=== PATIENT | female | born 1960 | race Caucasian/White ===

== ENCOUNTER 2018-08-24 03:13 | Emergency (ER) | payer BC ==
[~2018-08-24] VITALS: Ht 160 cm; Wt 75.0 kg
[~2018-08-24 03:13] MED LIST: ATI0.5T PO
[2018-08-24 03:15] VITALS: BP 188/83
== END 2018-08-24 04:40 | disposition home or self-care (01) ==
LOC: ER 03:13
DX: S00.412A Abrasion of left ear, initial encounter (principal); D68.32 Hemorrhagic disorder due to extrinsic circulating anticoagulants; T45.525A Adverse effect of antithrombotic drugs, initial encounter; H92.22 Otorrhagia, left ear; I10 Essential (primary) hypertension; Z90.49 Acquired absence of other specified parts of digestive tract; Z79.899 Other long term (current) drug therapy; X58.XXXA Exposure to other specified factors, initial encounter; Y93.89 Activity, other specified; Y92.89 Other specified places as the place of occurrence of the external cause; Y99.8 Other external cause status; Y92.9 Unspecified place or not applicable
CPT/HCPCS: 99281

== ENCOUNTER 2018-11-14 23:18 | Emergency (ER) | payer BC ==
[~2018-11-14] VITALS: Ht 160 cm; Wt 72.7 kg
[2018-11-14 23:30] VITALS: BP 121/72
[2018-11-14] MEDS ORDERED: ERYT1OIN6 RIGHTEYE (23:43)
== END 2018-11-14 23:57 | disposition home or self-care (01) ==
LOC: ER 23:19
DX: H00.022 Hordeolum internum right lower eyelid (principal); I10 Essential (primary) hypertension; Z79.899 Other long term (current) drug therapy
CPT/HCPCS: 99283

== ENCOUNTER 2020-05-27 09:10 | Day surgery (SDC) | payer BC ==
[2020-05-27] VITALS (9 sets, daily range): BP systolic 92–147; BP diastolic 47–83
[~2020-05-27] VITALS: Ht 160 cm; Wt 85.6 kg
[~2020-05-27 09:10] MED LIST changes: +LIDOcaine 1% (10mg/ml)w/preservative injection 20ml MDV ONE; +heparin 1,000unit/ml 10ml vial 10 ML ONE; +iohexol 350MG/ML 100ml bottle IV ONE
[2020-05-27] MEDS ORDERED: normal saline 1,000 ML IV SCH (09:45)
[2020-05-27] MEDS ORDERED: diphenhydrAMINE 25mg capsule PO PRN (09:45)
[2020-05-27 10:14] LABS: BASOPHILS # (AUTO) 0.1 X10'3 (0-0.2); BASOPHILS % (AUTO) 0.9 % (0-1); EOSINOPHILS # (AUTO) 0.3 X10'3 (0-0.9); EOSINOPHILS % (AUTO) 4.3 % (0-6); HEMATOCRIT 42.3 % (35.0-45.0); HEMOGLOBIN 13.6 g/dl (12.0-16.0); LYMPHOCYTES # (AUTO) 1.5 X10'3 (1.1-4.8); LYMPHOCYTES % (AUTO) 19.3 % (21-51); MEAN CORPUSCULAR HEMOGLOBIN 28.5 PG (27.0-31.0); MEAN CORPUSCULAR HGB CONC 32.1 g/dL (33.0-36.5); MEAN CORPUSCULAR VOLUME 88.8 FL (78-98); MEAN PLATELET VOLUME 7.7 FL (7.4-10.4); MONOCYTES # (AUTO) 0.7 X10'3 (0-0.9); MONOCYTES % (AUTO) 8.6 % (2-12); NEUTROPHILS # (AUTO) 5.1 X10'3 (1.8-7.7); NEUTROPHILS % (AUTO) 66.9 % (42-75); PLATELET COUNT 207 X10'3 (140-440); RED BLOOD COUNT 4.77 X10'6 (4.20-5.60); RED CELL DISTRIBUTION WIDTH 20.8 % (11.5-14.5); WHITE BLOOD COUNT 7.6 X10'3 (4.5-11.0)
[2020-05-27 10:28] LABS: ALBUMIN 3.2 G/DL (3.4-5.0); ANION GAP 7 (8-16); BLOOD UREA NITROGEN 10 MG/DL (7-18); BUN/CREATININE RATIO 8.9 (6.6-38.0); CALCIUM 9.1 MG/DL (8.5-10.1); CHLORIDE 102 MMOL/L (99-107); CREATININE 1.12 MG/DL (0.40-0.90); GLUCOSE 115 MG/DL (70-104); MAGNESIUM 1.8 MG/DL (1.5-2.4); POTASSIUM 4.3 MMOL/L (3.5-5.1); SODIUM 138 MMOL/L (135-145); TOTAL CARBON DIOXIDE 28.6 MMOL/L (24-32); eGFR 50 ML/MIN
[2020-05-27] MEDS ORDERED: PANT40TA54 PO (10:39)
[2020-05-27] MEDS ORDERED: CLOP75TA33 PO (10:39)
[2020-05-27] MEDS ORDERED: ATOR80TA PO (10:40)
[2020-05-27] MEDS ORDERED: FURO80TA87 PO (10:43)
[2020-05-27] MEDS ORDERED: CARV-50 PO (10:47)
[2020-05-27] MEDS ORDERED: ALBU18HF2 INH (10:48)
[2020-05-27] MEDS ORDERED: LISI10TA4 PO (10:48)
[2020-05-27] MEDS ORDERED: RIVA2.5T PO (10:50)
[2020-05-27 10:51] LABS: ANISOCYTOSIS 3+; HYPOCHROMASIA 1+; PLATELET ESTIMATE NORMAL; POLYCHROMASIA FEW; TARGET CELLS FEW
[2020-05-27] MEDS ORDERED: IPRA3AMP31 IH (10:51)
[2020-05-27 10:52] LABS: ELLIPTOCYTES FEW
[2020-05-27] MEDS ORDERED: iohexol 350MG/ML 100ml bottle IV ONE (10:53)
[2020-05-27] MEDS ORDERED: fentaNYL/PF 50MCG/1 ML 2ML syringe ONE ×3 (10:53→12:00)
[2020-05-27] MEDS ORDERED: LIDOcaine 1% (10mg/ml)w/preservative injection 20ml MDV ONE (10:53)
[2020-05-27] MEDS ORDERED: midazolam 2 mg/2 ml injection ONE ×4 (10:53→12:00)
[2020-05-27] MEDS ORDERED: heparin 1,000unit/ml 10ml vial 10 ML ONE (10:53)
[2020-05-27] MEDS ORDERED: POTA20TA19 PO (11:00)
[2020-05-27] MEDS ORDERED: LORA-268 PO (11:02)
[2020-05-27] MEDS ORDERED: protamine sulfate 10mg/ml inj. ONE (13:06)
[2020-05-27] MEDS ORDERED: acetaminophen 325mg tablet PO PRN (14:00)
[2020-05-27] MEDS ORDERED: HYDROcodone/acetaminophen 10/325mg tab PO PRN (14:00)
[2020-05-27] MEDS ORDERED: HYDROcodone/acetaminophen 5mg/325mg tablet PO PRN (14:00)
[2020-05-27] MEDS ORDERED: ondansetron/PF 4mg/2ml inj IV PRN (14:00)
[2020-05-27] MEDS ORDERED: proCHLORperazine 10 MG/2 ml inj IV PRN (14:00)
== END 2020-05-27 17:15 | disposition home or self-care (01) ==
LOC: SSTAY O 09:10
PROVIDERS: ATTEND Internal Medicine Cardiovascular Disease
DX: I70.213 Atherosclerosis of native arteries of extremities with intermittent claudication, bilateral legs (principal); I25.10 Atherosclerotic heart disease of native coronary artery without angina pectoris; M79.605 Pain in left leg; M79.604 Pain in right leg; I73.9 Peripheral vascular disease, unspecified; I65.22 Occlusion and stenosis of left carotid artery; I70.0 Atherosclerosis of aorta; I42.9 Cardiomyopathy, unspecified; I10 Essential (primary) hypertension; E78.5 Hyperlipidemia, unspecified; E11.9 Type 2 diabetes mellitus without complications
CPT/HCPCS: 36415; 37224; 75716; 80048; 83735; 85008; 85025; 85610; 93005; C1725; C1760; C1769; C1887; C1894; J1644; J2001; J2250; J2720; J3010; Q9967; 36140; 36245; 99152; 99153; A4620

== ENCOUNTER 2020-06-28 12:52 | Inpatient (IN) | payer BC ==
[~2020-06-28] VITALS: Ht 160 cm; Wt 85.0 kg
[2020-06-28] VITALS (11 sets, daily range): BP systolic 104–135; BP diastolic 43–75
[~2020-06-28 12:52] MED LIST changes: +ALBU18HF2 INH; +ATOR80TA PO; +CARV-50 PO; +CLOP75TA33 PO; +FURO80TA87 PO; +IPRA3AMP31 IH; -LIDOcaine 1% (10mg/ml)w/preservative injection 20ml MDV ONE; +LISI10TA4 PO; +LORA-268 PO; +PANT40TA54 PO; +POTA20TA19 PO; +RIVA2.5T PO; -heparin 1,000unit/ml 10ml vial 10 ML ONE; -iohexol 350MG/ML 100ml bottle IV ONE
[2020-06-28] MEDS ORDERED: CETI-90 PO (13:08)
[2020-06-28] MEDS ORDERED: MONT10TA21 PO (13:08)
[2020-06-28] MEDS ORDERED: IBUP-1985 PO (13:08)
[2020-06-28] MEDS ORDERED: diphenhydrAMINE 25mg capsule PO PRN (13:15)
[2020-06-28] MEDS ORDERED: normal saline 1,000 ML IV SCH (13:15)
[2020-06-28] MEDS ORDERED: fentaNYL/PF 50MCG/1 ML 2ML syringe ONE ×4 (13:26→17:45)
[2020-06-28] MEDS ORDERED: midazolam 2 mg/2 ml injection ONE ×6 (13:26→17:45)
[2020-06-28] MEDS ORDERED: LIDOcaine 1% (10mg/ml)w/preservative injection 20ml MDV ONE (13:26)
[2020-06-28] MEDS ORDERED: heparin 1,000unit/ml 10ml vial 10 ML ONE ×2 (13:27→17:54)
[2020-06-28] MEDS ORDERED: iohexol 350MG/ML 100ml bottle IV ONE ×4 (13:27→17:51)
[2020-06-28 13:35] LABS: ANION GAP 7 (8-16); BLOOD UREA NITROGEN 13 MG/DL (7-18); BUN/CREATININE RATIO 11.5 (6.6-38.0); CALCIUM 9.2 MG/DL (8.5-10.1); CHLORIDE 101 MMOL/L (99-107); CREATININE 1.13 MG/DL (0.40-0.90); GLUCOSE 116 MG/DL (70-104); MAGNESIUM 1.9 MG/DL (1.5-2.4); POTASSIUM 4.5 MMOL/L (3.5-5.1); SODIUM 137 MMOL/L (135-145); TOTAL CARBON DIOXIDE 29.2 MMOL/L (24-32); eGFR 49 ML/MIN
[2020-06-28 13:53] LABS: BASOPHILS # (AUTO) 0.1 X10'3 (0-0.2); BASOPHILS % (AUTO) 1.8 % (0-1); EOSINOPHILS # (AUTO) 0.3 X10'3 (0-0.9); EOSINOPHILS % (AUTO) 5.1 % (0-6); HEMATOCRIT 36.6 % (35.0-45.0); HEMOGLOBIN 11.7 g/dl (12.0-16.0); LYMPHOCYTES # (AUTO) 1.5 X10'3 (1.1-4.8); LYMPHOCYTES % (AUTO) 21.4 % (21-51); MEAN CORPUSCULAR HEMOGLOBIN 27.4 PG (27.0-31.0); MEAN CORPUSCULAR HGB CONC 31.9 g/dL (33.0-36.5); MEAN CORPUSCULAR VOLUME 85.9 FL (78-98); MONOCYTES # (AUTO) 0.6 X10'3 (0-0.9); MONOCYTES % (AUTO) 8.8 % (2-12); NEUTROPHILS # (AUTO) 4.3 X10'3 (1.8-7.7); NEUTROPHILS % (AUTO) 62.9 % (42-75); PLATELET COUNT 285 X10'3 (140-440); RED BLOOD COUNT 4.26 X10'6 (4.20-5.60); RED CELL DISTRIBUTION WIDTH 22.4 % (11.5-14.5); WHITE BLOOD COUNT 6.8 X10'3 (4.5-11.0)
[2020-06-28 13:59] LABS: ANISOCYTOSIS 3+; PLATELET ESTIMATE NORMAL; POLYCHROMASIA 1+
[2020-06-28] MEDS ORDERED: proCHLORperazine 10 MG/2 ml inj ONE (15:15)
[2020-06-28] MEDS ORDERED: HYDROmorphone 1 mg/ml syringe ONE (16:47)
[2020-06-28] MEDS ORDERED: clopidogrel 300mg tablet ONE (18:14)
[2020-06-28] MEDS ORDERED: HYDROcodone/acetaminophen 10/325mg tab PO PRN (19:00)
[2020-06-28] MEDS ORDERED: magnesium hydroxide 30ml (MOM) UD suspension PO PRN (19:00)
[2020-06-28] MEDS ORDERED: nitroGLYCERIN 0.4mg SUBLingual tab SL PRN (19:00)
--- NOTE | 2020-06-28 19:30 | NUR ---
Patient in room . I have received report from Carisa LAGOS from short stay and had the opportunity to ask questions and assume patient care.
--- NOTE | 2020-06-28 19:45 | NUR ---
Patient was transported by gurney to the PCU floor. Patient's belongings were placed in cabinet. Vitals were stable and patient was in very little pain. Left popliteal and right groin were assessed by myself and Carisa LAGOS. Patient was stable at time of transfer.
[2020-06-28] MEDS: docusate sod 100mg capsule PO SCH (20:00)
[2020-06-28] MEDS ORDERED: normal saline 1000ml 1,000 ML IV ONE (20:00)
[2020-06-29] VITALS (7 sets, daily range): BP systolic 107–131; BP diastolic 60–74
--- NOTE | 2020-06-29 01:30 | NUR ---
Unable to palpate patient's left pedal pulse. Unable to find doppler pulse. Temperature of right and left feet equal. Spoke with charge and she suggested to carefully ambulate patient now that 6 hours had passed. Patient ambulated with 2 person assistance to bathroom and back. Was able to find weak doppler pulse on left foot after ambulation. Will continue to monitor closely. Patient stated that her left foot has been discolored for a while and didn't look or feel different than it has felt.
[2020-06-29] MEDS ORDERED: normal saline 1,000 ML IV SCH (02:00)
[2020-06-29] MEDS: HYDROcodone/acetaminophen 10/325mg tab PO PRN ×2 (03:28→08:51)
[2020-06-29 05:34] LABS: CHOL/HDL RATIO 4.5 (0.00-4.99); CHOLESTEROL 117 MG/DL (0-200); HDL CHOLESTEROL 26 MG/DL (35-60); LDL CHOLESTEROL 53 MG/DL (50-100); TRIGLYCERIDES 303 MG/DL (20-135)
--- NOTE | 2020-06-29 06:30 | NUR ---
Patient in room PCU 3027. I have received report from Jessica LAGOS and had the opportunity to ask questions and assume patient care.
--- NOTE | 2020-06-29 06:49 | NUR ---
Problems reprioritized. Patient report given, questions answered & plan of care reviewed with Kathya LAGOS. Patient was resting comfortably during report. No acute distress was noted.
[2020-06-29] MEDS ORDERED: clopidogrel 75mg tablet PO SCH (08:00)
[2020-06-29] MEDS: docusate sod 100mg capsule PO SCH (08:00)
[2020-06-29] MEDS ORDERED: RIVA2.5T PO (09:18)
[2020-06-29] MEDS ORDERED: CLOP75TA15 PO (09:21)
--- NOTE | 2020-06-29 11:48 | NUR ---
Called in prescriptions to pharmacy of preference with Ashley pharmacist
--- NOTE | 2020-06-29 12:50 | NUR ---
Per MD orders, patient stable for discharge home. New prescriptions called in to pharmacy of preference. Discharge packet and post-op care instructions reviewed with patient at bedside and all questions answered to patient satisfaction. Tele monitoring discontinued, VSS. PIV discontinued; cannula intact. All belongings sent with patient. Transferred to private vehicle via wheelchair accompanied by family member.
[2020-06-30] MEDS ORDERED: HYDR-4383 PO (02:15)
[2020-06-30] MEDS ORDERED: iohexol 350MG/ML 100ml bottle IV ONE (04:17)
[2020-06-30] MEDS ORDERED: FURO-150 PO (12:13)
[2020-06-30] MEDS ORDERED: CLOP75TA15 PO (12:15)
[2020-06-30] MEDS ORDERED: RIVA2.5T PO (12:32)
== END 2020-06-29 12:45 | disposition home or self-care (01) | DRG 254 ==
LOC: SSTAY O 12:52 → PCU 3S 18:10
PROVIDERS: ADMIT Internal Medicine Cardiovascular Disease; ATTEND Internal Medicine Cardiovascular Disease
PROC: X27J395 Dilation of Left Femoral Artery with Two Sustained Release Drug-eluting Intraluminal Devices, Percutaneous Approach, New Technology Group 5 (ICD-10-PCS; principal; 2020-06-28)
PROC: 047N3ZZ Dilation of Left Popliteal Artery, Percutaneous Approach (ICD-10-PCS; 2020-06-28)
DX: I73.89 Other specified peripheral vascular diseases (principal)
CPT/HCPCS: 36415; 37226; 75710; 80048; 80061; 83735; 85008; 85025; 85610; 93005; 99152; 99153; A4620; A5120; A6258; C1725; C1760; C1769; C1876; C1887; C1894; C2623; G0378; J0780; J1170; J1644; J2001; J2250; J3010; J7030; Q0163; Q9967

== ENCOUNTER 2020-06-30 01:07 | Emergency (ER) | payer BC ==
[~2020-06-30] VITALS: Ht 160 cm; Wt 83.6 kg
[~2020-06-30 01:07] MED LIST changes: -ATI0.5T PO; +CETI-90 PO; +CLOP75TA15 PO; -CLOP75TA33 PO; +IBUP-1985 PO; +MONT10TA21 PO
[2020-06-30 01:25] VITALS: BP 124/66
[2020-06-30] MEDS ORDERED: HYDR-4383 PO (02:15)
[2020-06-30] MEDS ORDERED: FURO-150 PO (12:13)
[2020-06-30] MEDS ORDERED: CLOP75TA15 PO (12:15)
[2020-06-30] MEDS ORDERED: RIVA2.5T PO (12:32)
== END 2020-06-30 05:15 | disposition left against medical advice (07) ==
LOC: ER 01:08
DX: M79.652 Pain in left thigh (principal); G89.18 Other acute postprocedural pain
CPT/HCPCS: 93926; 93971; 99285

== ENCOUNTER 2020-06-30 10:06 | Inpatient (IN) | payer BC ==
[~2020-06-30] VITALS: Ht 162.6 cm; Wt 79.6 kg
[~2020-06-30 10:06] MED LIST changes: +HYDR-4383 PO; +calcium chloride 100 MG/1 ML inj IV ONE; +epiNEPHrine 0.1mg/ml 10ml syringe ONE; +etomidate 2mg/ml inj. ONE; +rocuronium 10mg/ml inj IV ONE; +sodium bicarbonate (8.4%) 1 mEq/ml syringe ONE
[2020-06-30] MEDS ORDERED: heparin 10,000 units/1 ML INJ IV ONE (10:25)
[2020-06-30] MEDS ORDERED: morphine 4 MG/ML inj SYRINge IV ONE (10:30)
[2020-06-30] MEDS ORDERED: ondansetron/PF 4mg/2ml inj IV ONE (10:30)
[2020-06-30] MEDS: heparin 25,000 UNIT/250ml bag 250 ML IV SCH (10:53)
[2020-06-30] MEDS ORDERED: acetaminophen 325mg tablet PO PRN (10:55)
[2020-06-30] MEDS ORDERED: magnesium 4gm in 100ml NS 100 ML IV PRN (10:55)
[2020-06-30] MEDS ORDERED: potassium Cl 20 mEq SR tablet PO PRN ×2 (10:55)
[2020-06-30] MEDS ORDERED: ondansetron/PF 4mg/2ml inj IV PRN (10:55)
[2020-06-30] MEDS ORDERED: magnesium 2GM in 50ml NS 50 ML IV PRN (10:55)
[2020-06-30] MEDS ORDERED: magnesium Cl slow-release 64mg tablet PO PRN (10:55)
[2020-06-30] MEDS ORDERED: potassium CL 10mEq/100ml bag 100 ML IV PRN (10:55)
[2020-06-30] MEDS ORDERED: normal saline 1000ml 1,000 ML IV ONE (11:10)
[2020-06-30 11:12] LABS: BASOPHILS % (AUTO) 0.4 % (0-1); EOSINOPHILS # (AUTO) 0.4 X10'3 (0-0.9); EOSINOPHILS % (AUTO) 4.2 % (0-6); HEMATOCRIT 25.4 % (35.0-45.0); HEMOGLOBIN 8.2 g/dl (12.0-16.0); LYMPHOCYTES # (AUTO) 0.8 X10'3 (1.1-4.8); LYMPHOCYTES % (AUTO) 9.4 % (21-51); MEAN CORPUSCULAR HEMOGLOBIN 27.8 PG (27.0-31.0); MEAN CORPUSCULAR HGB CONC 32.4 g/dL (33.0-36.5); MEAN PLATELET VOLUME 7.6 FL (7.4-10.4); MONOCYTES # (AUTO) 0.8 X10'3 (0-0.9); MONOCYTES % (AUTO) 9.1 % (2-12); NEUTROPHILS # (AUTO) 6.5 X10'3 (1.8-7.7); NEUTROPHILS % (AUTO) 76.9 % (42-75); PLATELET COUNT 221 X10'3 (140-440); RED BLOOD COUNT 2.95 X10'6 (4.20-5.60); RED CELL DISTRIBUTION WIDTH 22.3 % (11.5-14.5); WHITE BLOOD COUNT 8.4 X10'3 (4.5-11.0)
[2020-06-30 11:15] LABS: ALANINE AMINOTRANSFERASE 10 U/L (12-78); ALBUMIN 2.4 G/DL (3.4-5.0); ALBUMIN/GLOBULIN RATIO 0.6 (1.1-1.5); ALKALINE PHOSPHATASE 80 IU/L (46-116); ANION GAP 8 (8-16); ASPARTATE AMINO TRANSFERASE 23 U/L (10-37); BILIRUBIN,TOTAL 0.6 MG/DL (0.1-1.0); BLOOD UREA NITROGEN 5 MG/DL (7-18); BUN/CREATININE RATIO 6.2 (6.6-38.0); CALCIUM 8.8 MG/DL (8.5-10.1); CHLORIDE 102 MMOL/L (99-107); CREATININE 0.81 MG/DL (0.40-0.90); GLUCOSE 136 MG/DL (70-104); POTASSIUM 3.8 MMOL/L (3.5-5.1); SODIUM 138 MMOL/L (135-145); TOTAL CARBON DIOXIDE 28.2 MMOL/L (24-32); TOTAL PROTEIN 6.1 G/DL (6.4-8.2); eGFR 72 ML/MIN
[2020-06-30] MEDS: normal saline 1000ml 1,000 ML IV SCH ×2 (11:24→21:37)
[2020-06-30 12:03] LABS: ANISOCYTOSIS 3+; HYPOCHROMASIA 1+; PLATELET ESTIMATE NORMAL; STOMATOCYTES FEW
[2020-06-30] MEDS ORDERED: FURO-150 PO (12:13)
[2020-06-30] MEDS ORDERED: CLOP75TA15 PO (12:15)
[2020-06-30] MEDS ORDERED: RIVA2.5T PO (12:32)
[2020-06-30 12:56] LABS: CLARITY,URINE SLIGHTLY CLOUDY (Clear); COLOR,URINE YELLOW (Yellow); GLUCOSE, URINE NEGATIVE (Neg); KETONES,URINE NEGATIVE (Neg); LEUKOCYTE ESTERASE ,URINE NEGATIVE (Neg); NITRITES, URINE POSITIVE (Neg); OCCULT BLOOD,URINE NEGATIVE (Neg); PH,URINE 6.5 (4.8-8.0); PROTEIN,URINE NEGATIVE (Neg); UROBILINOGEN,URINE 0.2 E.U/dL (0.2-1.0)
[2020-06-30 13:05] LABS: UA COLLECTION TYPE CLN CATCH MIDSTREAM
--- NOTE | 2020-06-30 13:10 | NUR ---
BP 82/48 after receiving 1L NS Bolus. No complaints of dizziness. Dr. Mitchell notified. Orders placed, will continue to monitor.
[2020-06-30 13:11] LABS: BACTERIA,URINE 3+ /HPF (Neg); RBC,URINE NONE SEEN /HPF (0-2); WBC,URINE 0-4 /HPF (0-4)
[2020-06-30 13:12] LABS: MUCUS STRANDS NONE SEEN /LPF (Neg); SQUAMOUS EPITHELIAL CELL,UR MODERATE /LPF (FEW)
[2020-06-30 16:45] LABS: % IRON SATURATION 6 % (11-46); IRON 19 UG/DL (49-151); TOTAL IRON BINDING CAPACITY 341 UG/DL (259-388)
[2020-06-30 17:08] LABS: PARTIAL THROMBOPLASTIN TIME 115 SECONDS (22-32)
[2020-06-30 17:15] VITALS: BP 104/54
[2020-06-30 18:00] VITALS: BP 97/59
--- NOTE | 2020-06-30 18:25 | NUR ---
Problems reprioritized. Patient report given, questions answered & plan of care reviewed with YOLIS Fisher and YOLIS Matias.
--- NOTE | 2020-06-30 18:28 | NUR ---
Patient in room PCU 3019. I have received report from Cuca LAGOS and had the opportunity to ask questions and assume patient care.
--- NOTE | 2020-06-30 18:32 | NUR ---
Patient in room U 3019. I have received report from YOLIS Thurman and had the opportunity to ask questions and assume patient care. Patient resting in bed. No signs of distress. Safety measures in place, bed in low and locked position. Call light and personal items within reach. Will continue to monitor.
[2020-06-30] MEDS: morphine 2 MG/ML inj. syringe IV PRN (19:32)
[2020-06-30 20:00] VITALS: BP_SYST 101; BP_SYST 107; BP_SYST 99; BP_DIAS 59; BP_DIAS 60; BP_DIAS 62
[2020-06-30] MEDS: K and/or MAG REPLACEMENT MC SCH (20:00)
[2020-06-30 22:00] VITALS: BP 111/58
--- NOTE | 2020-06-30 22:09 | NUR ---
PAGER ID: [phone] MESSAGE: Pt Sharon Leon RM [id number] Pt complaining of severe leg pain. 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 She was given 1mg IVP Morphine & still having pain. Can we get a PO pain med for between doses? Natalia LAGOS ext [phone]
[2020-06-30] MEDS ORDERED: HYDROcodone/acetaminophen 10/325mg tab PO PRN (22:15)
[2020-06-30] MEDS: heparin 10,000 units/1 ML INJ IV PRN (22:33)
[2020-06-30] MEDS: HYDROcodone/acetaminophen 5mg/325mg tablet PO PRN (22:36)
[2020-07-01] VITALS (15 sets, daily range): BP systolic 107–159; BP diastolic 60–92
--- NOTE | 2020-07-01 00:14 | NUR ---
Paged Dr. Willis. RE: Patient Sharon Maloney. RM [id number]. Complaining of SOB. Requesting breathing treatment, no orders. On Albuterol at home. Florencio [id number]
--- NOTE | 2020-07-01 00:56 | NUR ---
Per Dr. Willis, orders given for Duoneb (Ipratropium/Albuterol) Q4H while awake and q2H PRN.
[2020-07-01] MEDS: ipratropium/albuterol 3ml nebule NEB PRN ×2 (01:15→17:23)
[2020-07-01] MEDS ORDERED: acetaminophen 325mg tablet PO PRN (01:15)
[2020-07-01] MEDS: ipratropium/albuterol 3ml nebule NEB SCH ×6 (02:08→23:49)
[2020-07-01] MEDS: morphine 2 MG/ML inj. syringe IV PRN ×2 (02:24→20:06)
--- NOTE | 2020-07-01 04:07 | NUR ---
[place] documentation: I have reviewed and agree with all interventions, assessments performed and documented by Florencio LAGOS. [place] Medication Administration: For this medication-pass time frame, all medication were reviewed, dispensed, administered and documented per hospital policy by Florencio LAGOS.
[2020-07-01] MEDS: HYDROcodone/acetaminophen 5mg/325mg tablet PO PRN (05:23)
[2020-07-01] MEDS: normal saline 1000ml 1,000 ML IV SCH ×2 (05:23→19:18)
[2020-07-01] MEDS: heparin 25,000 UNIT/250ml bag 250 ML IV SCH (05:31)
--- NOTE | 2020-07-01 06:13 | NUR ---
Problems reprioritized. Patient report given, questions answered & plan of care reviewed with Rosy LAGOS.
--- NOTE | 2020-07-01 06:18 | NUR ---
Problems reprioritized. Patient report given, questions answered & plan of care reviewed with YOLIS Gallegos. Patient on heparin drip running at 1400 units/hr. NS running at 100mls/hr. Safety measures in place, bed in low and locked position. Call light and personal items withiin reach. Will continue to monitor for remainder of shift.
[2020-07-01 06:21] LABS: BASOPHILS # (AUTO) 0.1 X10'3 (0-0.2); BASOPHILS % (AUTO) 1.3 % (0-1); EOSINOPHILS # (AUTO) 0.4 X10'3 (0-0.9); EOSINOPHILS % (AUTO) 4.2 % (0-6); HEMATOCRIT 23.7 % (35.0-45.0); HEMOGLOBIN 7.5 g/dl (12.0-16.0); LYMPHOCYTES # (AUTO) 1.1 X10'3 (1.1-4.8); LYMPHOCYTES % (AUTO) 11.6 % (21-51); MEAN CORPUSCULAR HEMOGLOBIN 27.6 PG (27.0-31.0); MEAN CORPUSCULAR HGB CONC 31.7 g/dL (33.0-36.5); MEAN CORPUSCULAR VOLUME 87.2 FL (78-98); MEAN PLATELET VOLUME 8.3 FL (7.4-10.4); MONOCYTES # (AUTO) 0.8 X10'3 (0-0.9); MONOCYTES % (AUTO) 8.2 % (2-12); NEUTROPHILS # (AUTO) 7.1 X10'3 (1.8-7.7); NEUTROPHILS % (AUTO) 74.7 % (42-75); PLATELET COUNT 171 X10'3 (140-440); RED BLOOD COUNT 2.72 X10'6 (4.20-5.60); RED CELL DISTRIBUTION WIDTH 22.8 % (11.5-14.5); WHITE BLOOD COUNT 9.5 X10'3 (4.5-11.0)
[2020-07-01 06:39] LABS: ALBUMIN 2.2 G/DL (3.4-5.0); ANION GAP 10 (8-16); BLOOD UREA NITROGEN 5 MG/DL (7-18); BUN/CREATININE RATIO 6.3 (6.6-38.0); CALCIUM 8.2 MG/DL (8.5-10.1); CHLORIDE 108 MMOL/L (99-107); GLUCOSE 119 MG/DL (70-104); MAGNESIUM 1.7 MG/DL (1.5-2.4); POTASSIUM 3.8 MMOL/L (3.5-5.1); SODIUM 142 MMOL/L (135-145); TOTAL CARBON DIOXIDE 24.4 MMOL/L (24-32); eGFR 73 ML/MIN
--- NOTE | 2020-07-01 06:39 | NUR ---
Patient in room PCU 3019. I have received report from Natalia LAGOS and had the opportunity to ask questions and assume patient care. Patient awake in bed and resting comfortably. Offers no complaints. Will continue to monitor.
[2020-07-01] MEDS ORDERED: heparin 1,000unit/ml 10ml vial 10 ML ONE (07:41)
[2020-07-01] MEDS ORDERED: fentaNYL/PF 50MCG/1 ML 2ML syringe ONE ×2 (07:41→08:49)
[2020-07-01] MEDS ORDERED: midazolam 2 mg/2 ml injection ONE ×2 (07:41→08:29)
[2020-07-01] MEDS ORDERED: LIDOcaine 1% (10mg/ml)w/preservative injection 20ml MDV ONE (07:41)
[2020-07-01] MEDS ORDERED: iohexol 350 MG/1 ML 200ml bottle ONE (07:42)
--- NOTE | 2020-07-01 07:45 | NUR ---
Patient prepped, consented and ready for peripheral angioplasty.
[2020-07-01] MEDS: K and/or MAG REPLACEMENT MC SCH ×2 (08:00→20:00)
[2020-07-01] MEDS ORDERED: heparin 1,000 UNITS/NS 500ml 500 ML ONE (08:22)
[2020-07-01] MEDS ORDERED: NORMAL SALINE IV SCH (09:22)
[2020-07-01] MEDS ORDERED: ALTEPLASE IV SCH (09:22)
[2020-07-01] MEDS ORDERED: metoprolol tartrate 1mg/ml inj IV ONE ×2 (09:24→09:39)
[2020-07-01] MEDS ORDERED: heparin 25,000 UNIT/250ml bag 250 ML IV ONE (09:28)
[2020-07-01] MEDS ORDERED: HYDROmorphone 1 mg/ml syringe ONE (10:20)
--- NOTE | 2020-07-01 10:45 | NUR ---
Patient in room CICU 2016. I have received report from DANIELLE EXECUTIVE ASSISTANT TO PRESIDENT and had the opportunity to ask questions and assume patient care.
[2020-07-01 11:03] LABS: ANISOCYTOSIS 3+; HYPOCHROMASIA 1+; MICROCYTOSIS FEW; PLATELET ESTIMATE NORMAL; POLYCHROMASIA 1+; SPHEROCYTES FEW; STOMATOCYTES FEW
[2020-07-01] MEDS ORDERED: proCHLORperazine 10 MG/2 ml inj IV PRN (11:25)
[2020-07-01] MEDS ORDERED: magnesium hydroxide 30ml (MOM) UD suspension PO PRN (11:25)
[2020-07-01] MEDS: nicotine 14mg patch - 24hr TD SCH (11:26)
--- NOTE | 2020-07-01 12:00 | NUR ---
Dr. Hand at bedside,aware of no doppler pulses to LLE, requesting TPA infusion to remain at 1 mg,20 ml/hr, DO NOT turn down to 0.5 mg,10 cc/hr per protocol. will continue to moniter right groin sheath site and Left foot circulation closely
[2020-07-01] MEDS: HYDROmorphone inj. 0.5 MG/0.5 ML DISP.SYRIN IV PRN ×3 (12:30→18:48)
--- NOTE | 2020-07-01 14:27 | NUR ---
1100 SVN MISSED-PT IN PROCEDURE
--- NOTE | 2020-07-01 14:33 | NUR ---
1500 SVN HELD BY RN DUE TO POST PROCEDURE CONDITION-NO DISTRESS OBSERVED
[2020-07-01 17:29] LABS: HEMATOCRIT 25.3 % (35.0-45.0); HEMOGLOBIN 7.8 g/dl (12.0-16.0); MEAN CORPUSCULAR HGB CONC 30.9 g/dL (33.0-36.5); MEAN CORPUSCULAR VOLUME 87.2 FL (78-98); MEAN PLATELET VOLUME 7.6 FL (7.4-10.4); PLATELET COUNT 232 X10'3 (140-440); RED CELL DISTRIBUTION WIDTH 22.4 % (11.5-14.5); WHITE BLOOD COUNT 13.2 X10'3 (4.5-11.0)
--- NOTE | 2020-07-01 18:30 | NUR ---
Patient in room CICU 2014. I have received report from Kristin LAGOS and had the opportunity to ask questions and assume patient care.
--- NOTE | 2020-07-01 18:30 | NUR ---
Problems reprioritized. Patient report given, questions answered & plan of care reviewed with Jose AlejandroRN.
[2020-07-01] MEDS: LORazepam 2 mg/ml vial IV PRN (18:47)
[2020-07-01] MEDS: NORMAL SALINE IV SCH (19:32)
[2020-07-01] MEDS: ALTEPLASE IV SCH (19:32)
--- NOTE | 2020-07-01 19:33 | NUR ---
medication reassessment dilaudid and zofran documented as not done "given in ER". this was given on previous shift and there is no better option
--- NOTE | 2020-07-01 19:53 | NUR ---
Dr. Hand call please keep heparin drip and TPA infusing until he is able to come in and evaluate pt, in the event that the pt in the event that the pt becomes unstable or s/x of bleeding call Dr. Hand immediately
--- NOTE | 2020-07-01 21:16 | NUR ---
NOTIFIED PAGER ID: [phone] MESSAGE: 2014-Sharon Leon- pt has sheath in place keeps waking and sitting up, may I have a restraint order and/or more sedating medications. Jose Alejandro RN CICU
[2020-07-01] MEDS ORDERED: LORazepam 1 MG tablet PO PRN (22:05)
[2020-07-01 22:07] LABS: HEMOGLOBIN 8.1 g/dl (12.0-16.0); RED BLOOD COUNT 2.92 X10'6 (4.20-5.60); WHITE BLOOD COUNT 14.7 X10'3 (4.5-11.0)
[2020-07-01 22:08] LABS: HEMATOCRIT 25.8 % (35.0-45.0); MEAN CORPUSCULAR HEMOGLOBIN 27.7 PG (27.0-31.0); MEAN CORPUSCULAR HGB CONC 31.4 g/dL (33.0-36.5); MEAN CORPUSCULAR VOLUME 88.3 FL (78-98); MEAN PLATELET VOLUME 7.4 FL (7.4-10.4); PLATELET COUNT 201 X10'3 (140-440); RED CELL DISTRIBUTION WIDTH 22.6 % (11.5-14.5)
[2020-07-02] VITALS (26 sets, daily range): BP systolic 94–171; BP diastolic 60–90
[2020-07-02] MEDS: morphine 2 MG/ML inj. syringe IV PRN ×2 (00:44→14:21)
--- NOTE | 2020-07-02 00:46 | NUR ---
sushil benitez c/o throbbing, stabbing sharp pain in left leg. LLE hot to touch and red at calf area. no open areas. no sensation difference per patient. otherwise intact. when asked if this is new pain patient states no - it is the same pain as before just worsening. morphine 1 mg iv given per order.
[2020-07-02] MEDS: ALTEPLASE IV SCH ×2 (01:01→06:21)
[2020-07-02] MEDS: NORMAL SALINE IV SCH ×2 (01:01→06:21)
--- NOTE | 2020-07-02 01:05 | NUR ---
DORSALIS PEDAL PULSE present with doppler
[2020-07-02] MEDS: heparin 25,000 UNIT/250ml bag 250 ML IV SCH ×2 (01:14→12:25)
[2020-07-02] MEDS: LORazepam 2 mg/ml vial IV PRN ×4 (01:53→20:50)
--- NOTE | 2020-07-02 02:40 | NUR ---
SOFT RESTRAINTS PLACED pt became combative, aggressively pulling at all lines that she could get a hold of, swinging at staff (trying to hit staff), and calling out for help from characters from [employer] show (we looked up the names she was calling for, to confirm). at this time there is a leg splint on her R leg (sheath leg), a rolled sheet loosely over he right ankle )to prevent her from bending the sheath), and a rolled sheet suspended over the top of her chest to prevent her from sitting up in bend and bending the sheath. pt does not appear to be in her right state of mind at this time.
[2020-07-02] MEDS: ipratropium/albuterol 3ml nebule NEB SCH ×5 (04:00→23:02)
[2020-07-02] MEDS: normal saline 1000ml 1,000 ML IV SCH ×3 (04:30→22:55)
[2020-07-02 05:58] LABS: MEAN CORPUSCULAR HEMOGLOBIN 27.6 PG (27.0-31.0); MEAN CORPUSCULAR HGB CONC 31.5 g/dL (33.0-36.5); MEAN CORPUSCULAR VOLUME 87.6 FL (78-98); MEAN PLATELET VOLUME 7.5 FL (7.4-10.4); PLATELET COUNT 189 X10'3 (140-440); RED BLOOD COUNT 2.49 X10'6 (4.20-5.60); RED CELL DISTRIBUTION WIDTH 22.7 % (11.5-14.5); WHITE BLOOD COUNT 12.2 X10'3 (4.5-11.0)
[2020-07-02 06:05] LABS: ANION GAP 9 (8-16); BLOOD UREA NITROGEN 4 MG/DL (7-18); BUN/CREATININE RATIO 5.2 (6.6-38.0); CALCIUM 8.1 MG/DL (8.5-10.1); CHLORIDE 103 MMOL/L (99-107); CREATININE 0.77 MG/DL (0.40-0.90); GLUCOSE 133 MG/DL (70-104); MAGNESIUM 1.7 MG/DL (1.5-2.4); POTASSIUM 3.3 MMOL/L (3.5-5.1); SODIUM 138 MMOL/L (135-145); TOTAL CARBON DIOXIDE 26.4 MMOL/L (24-32); eGFR 77 ML/MIN
[2020-07-02 06:12] LABS: HEMATOCRIT 21.8 % (35.0-45.0); HEMOGLOBIN 6.9 g/dl (12.0-16.0)
--- NOTE | 2020-07-02 06:25 | NUR ---
Problems reprioritized. Patient report given, questions answered & plan of care reviewed with Sara LAGOS.
--- NOTE | 2020-07-02 06:29 | NUR ---
NOTIFIED PAGER ID: [phone] MESSAGE: Sharon Samuel- critical H&H 6.8
[2020-07-02] MEDS: HYDROmorphone inj. 0.5 MG/0.5 ML DISP.SYRIN IV PRN (06:55)
--- NOTE | 2020-07-02 07:00 | NUR ---
Patient in room CICU 2014. I have received report from Jose Alejandro RN and had the opportunity to ask questions and assume patient care.
[2020-07-02] MEDS: potassium CL 10mEq/100ml bag 100 ML IV PRN ×4 (08:27→16:34)
[2020-07-02] MEDS: clopidogrel 75mg tablet PO SCH (08:28)
[2020-07-02] MEDS: K and/or MAG REPLACEMENT MC SCH ×2 (08:28→20:00)
[2020-07-02] MEDS: nicotine 14mg patch - 24hr TD SCH (08:28)
--- NOTE | 2020-07-02 08:39 | NUR ---
Page sent to Dr. Hand: PAGER ID: [phone] MESSAGE: 2014 Sharon Leon: Dr. Hand came by and would like you to call him at [phone]. Thank you, Sara [phone] Addendum: 07/02/20 at 0839 by Sara Robert RN Page sent to Dr. Rosales
[2020-07-02] MEDS: CefTRIAXone/D5W-Rocephin 1gm 50 ML IV SCH (10:12)
[2020-07-02] MEDS ORDERED: cetirizine 10mg tablet PO PRN (14:50)
[2020-07-02 15:17] LABS: HEMATOCRIT 28.8 % (35.0-45.0); HEMOGLOBIN 9.1 g/dl (12.0-16.0); MEAN CORPUSCULAR HEMOGLOBIN 28.2 PG (27.0-31.0); MEAN CORPUSCULAR HGB CONC 31.6 g/dL (33.0-36.5); MEAN CORPUSCULAR VOLUME 89.1 FL (78-98); MEAN PLATELET VOLUME 7.1 FL (7.4-10.4); PLATELET COUNT 218 X10'3 (140-440); RED BLOOD COUNT 3.23 X10'6 (4.20-5.60); RED CELL DISTRIBUTION WIDTH 20.7 % (11.5-14.5); WHITE BLOOD COUNT 17.4 X10'3 (4.5-11.0)
--- NOTE | 2020-07-02 15:30 | NUR ---
Received verbal order from Dr. Hand to shut off Heparin drips. Will continue to monitor perfusion status closely. Addendum: 07/02/20 at 1655 by Sara Robert RN Patient's PTT is low requiring a Heparin bolus and increase in rate per protocol; Heparin drips are on hold for now per
[2020-07-02] MEDS ORDERED: cloNIDine 0.1 mg tablet PO ONE (17:55)
--- NOTE | 2020-07-02 18:10 | NUR ---
Patient HR spiked to 150's and O2 demand increased and hypertensive. Patient received 1 unit PRBC's earlier, HR has consistently trended 110's-120's. Dr. Hand on his way in to remove sheath. Will call Dr. Hand to give update.
[2020-07-02] MEDS ORDERED: rivaroxaban 20mg tablet PO ONE (18:30)
--- NOTE | 2020-07-02 18:30 | NUR ---
Patient in room CICU 2014. I have received report from YOLIS Sousa and had the opportunity to ask questions and assume patient care.
--- NOTE | 2020-07-02 18:36 | NUR ---
Problems reprioritized. Patient report given, questions answered & plan of care reviewed with Breana LAGOS.
[2020-07-02] MEDS: metoprolol tartrate 1mg/ml inj IV SCH ×2 (18:39→20:00)
[2020-07-02] MEDS ORDERED: furosemide 40mg/4ml inj IV ONE (18:45)
[2020-07-02 19:11] LABS: ABG BASE EXCESS -8.2 mmol/L (-2.0-2.0); ABG HCO3 22.5 mmol/L (22.0-26.0); ABG OXYGEN SATURATION 99.1 % (94-97); ABG PCO2 (T) 76.1 mmHg (32.0-45.0); ABG PO2 (T) 231.2 mmHg (75.0-100.0); FCOHb 0.3 % (0.0-3.9); FMetHb 0.4 % (0.0-1.5); FO2Hb 98.4 % (94-97); PATIENT TEMPERATURE 36.1; TOTAL HEMOGLOBIN 10.1 G/dl (12.0-16.0)
[2020-07-02] MEDS: lactobacillus rhamnosus 10,000 MMU CELLS/CAPSULE PO SCH (20:00)
[2020-07-02] MEDS ORDERED: carVEDilol 12.5mg tablet PO SCH (20:00)
[2020-07-02] MEDS: pantoprazole 40mg Tablet.DR PO SCH (20:00)
[2020-07-02] MEDS ORDERED: LORazepam 2 mg/ml vial IM ONE (20:10)
[2020-07-02] MEDS ORDERED: LORazepam 2 mg/ml vial IV ONE ×3 (20:15→20:40)
[2020-07-02] MEDS ORDERED: morphine 2 MG/ML inj. syringe IV PRN (20:40)
[2020-07-02] MEDS: heparin 10,000 units/1 ML INJ IV PRN (20:52)
[2020-07-02 20:56] LABS: ABG HCO3 21.3 mmol/L (22.0-26.0); ABG OXYGEN SATURATION 96.2 % (94-97); ABG PCO2 (T) 44.6 mmHg (32.0-45.0); ABG PO2 (T) 87.6 mmHg (75.0-100.0); FCOHb 0.8 % (0.0-3.9); FMetHb 0.1 % (0.0-1.5); FO2Hb 95.3 % (94-97); TOTAL HEMOGLOBIN 10.2 G/dl (12.0-16.0)
[2020-07-02] MEDS ORDERED: LORazepam 0.5 MG tablet PO SCH (21:00)
[2020-07-02] MEDS: montelukast 10mg tablet PO SCH (21:00)
[2020-07-02 22:13] LABS: HEMATOCRIT 25.8 % (35.0-45.0); HEMOGLOBIN 8.3 g/dl (12.0-16.0); MEAN CORPUSCULAR HGB CONC 32.1 g/dL (33.0-36.5); MEAN CORPUSCULAR VOLUME 87.2 FL (78-98); MEAN PLATELET VOLUME 7.4 FL (7.4-10.4); PLATELET COUNT 181 X10'3 (140-440); RED BLOOD COUNT 2.96 X10'6 (4.20-5.60); RED CELL DISTRIBUTION WIDTH 20.6 % (11.5-14.5); WHITE BLOOD COUNT 13.4 X10'3 (4.5-11.0)
--- NOTE | 2020-07-02 22:30 | NUR ---
Patient in severe distress at start of shift. Patient thrashing, confused, unable to comprehend that she must remain flat and not bend right lower extremity due to arterial sheath. Restraints in place and sitter at bedside in attempts to control patients anxiety and compliance to remaining flat and not bending leg. HR in 150-160s, O2 in mid 80s on 8L nasal cannula and guppy breathing. Patient placed on a nonrebreather at 15L which improved O2 sats however patient continues with guppy breathing. Orders were given to day shift RN to give 5mg of metoprolol IV q5min x3 doses. I gave a total of 2 doses spaced apart due to BP. HR improved, down to 115bmp. IV lasix was also given when BP was able to tolerate it. Dr. Bird given update on the patient and orders were given for a stat abg and xray. ABG showed respitarory acidosis and xray showed pulmonary edema. MD was given an update on these findings and orders for bipap and a repeat abg order was given. Dr Hand came in at 1999. Several orders of ativan were given and 2mg of morphine to help calm patient's severe agitation. Once patient was calm, MD was able to place a cvl to the left subclavian and remove the infusion catheter that was to the right groin, sheath remain in place. MD was also notified that patient does not have pulses to L pedal or tibial. Orders for 5000 unit heparin bolus was given and to restart heparin drip at previous dose of 1100units per hour. MD remained at bedside until all said events were completed. Several other written orders were given and placed in EMR. Will continue to monitor patient and update MD as needed.
[2020-07-02] MEDS ORDERED: pantoprazole 40 MG vial IV ONE (23:00)
[2020-07-02] MEDS: budesonide 0.5mg/2ml UD nebule IH SCH (23:02)
[2020-07-02 23:56] LABS: ABG BASE EXCESS 0.5 mmol/L (-2.0-2.0); ABG HCO3 25.7 mmol/L (22.0-26.0); ABG OXYGEN SATURATION 94.9 % (94-97); ABG PO2 (T) 80.2 mmHg (75.0-100.0); FCOHb 0.3 % (0.0-3.9); FMetHb 0.2 % (0.0-1.5); FO2Hb 94.4 % (94-97); PATIENT TEMPERATURE 37.1; RESPIRATORY RATE 18 b/min; TOTAL HEMOGLOBIN 9.1 G/dl (12.0-16.0)
[2020-07-03] VITALS (23 sets, daily range): BP systolic 90–150; BP diastolic 57–92
[2020-07-03] MEDS: LORazepam 2 mg/ml vial IV PRN ×5 (01:51→09:58)
[2020-07-03] MEDS: ipratropium/albuterol 3ml nebule NEB SCH ×6 (03:11→23:38)
[2020-07-03 03:18] LABS: BASOPHILS # (AUTO) 0.1 X10'3 (0-0.2); BASOPHILS % (AUTO) 0.7 % (0-1); EOSINOPHILS % (AUTO) 0.1 % (0-6); HEMATOCRIT 23.2 % (35.0-45.0); HEMOGLOBIN 7.7 g/dl (12.0-16.0); LYMPHOCYTES # (AUTO) 0.9 X10'3 (1.1-4.8); LYMPHOCYTES % (AUTO) 8.4 % (21-51); MEAN CORPUSCULAR HEMOGLOBIN 28.8 PG (27.0-31.0); MEAN CORPUSCULAR HGB CONC 33.1 g/dL (33.0-36.5); MEAN CORPUSCULAR VOLUME 86.8 FL (78-98); MEAN PLATELET VOLUME 7.4 FL (7.4-10.4); MONOCYTES # (AUTO) 0.7 X10'3 (0-0.9); MONOCYTES % (AUTO) 6.9 % (2-12); NEUTROPHILS # (AUTO) 8.8 X10'3 (1.8-7.7); NEUTROPHILS % (AUTO) 83.9 % (42-75); PLATELET COUNT 164 X10'3 (140-440); RED BLOOD COUNT 2.67 X10'6 (4.20-5.60); RED CELL DISTRIBUTION WIDTH 20.7 % (11.5-14.5); WHITE BLOOD COUNT 10.5 X10'3 (4.5-11.0)
[2020-07-03 03:36] LABS: ALBUMIN 1.9 G/DL (3.4-5.0); ANION GAP 7 (8-16); BLOOD UREA NITROGEN 6 MG/DL (7-18); BUN/CREATININE RATIO 8.6 (6.6-38.0); CHLORIDE 105 MMOL/L (99-107); GLUCOSE 133 MG/DL (70-104); MAGNESIUM 1.7 MG/DL (1.5-2.4); POTASSIUM 3.2 MMOL/L (3.5-5.1); SODIUM 141 MMOL/L (135-145); TOTAL CARBON DIOXIDE 28.6 MMOL/L (24-32); eGFR 86 ML/MIN
[2020-07-03] MEDS: morphine 2 MG/ML inj. syringe IV PRN ×3 (04:33→10:38)
[2020-07-03] MEDS: potassium Cl 20mEq/100mL bag 100 ML IV PRN ×2 (05:03→07:53)
[2020-07-03] MEDS: heparin 25,000 UNIT/250ml bag 250 ML IV SCH ×2 (05:05→21:45)
[2020-07-03] MEDS ORDERED: furosemide 40mg/4ml inj IV ONE (05:10)
--- NOTE | 2020-07-03 05:12 | NUR ---
MD Hand called this am for update on patient condition; full update given. notified of patient's xray continuing to look about the same and urine output tapering off. order for IV lasix received. also made aware that patient continue to be pulseless on LLE. stated that he will figure something out later this morning as he is planning on coming in shortly.
--- NOTE | 2020-07-03 06:19 | NUR ---
Problems reprioritized. Patient report given, questions answered & plan of care reviewed with YOLIS Eddy.
--- NOTE | 2020-07-03 06:30 | NUR ---
Patient in room CICU 2014. I have received report from Breana LAGOS and had the opportunity to ask questions and assume patient care.
[2020-07-03] MEDS ORDERED: clopidogrel 75mg tablet PO SCH (08:00)
[2020-07-03] MEDS: atorvastatin 20mg tablet PO SCH (08:00)
[2020-07-03] MEDS: lactobacillus rhamnosus 10,000 MMU CELLS/CAPSULE PO SCH ×2 (08:00→20:38)
[2020-07-03] MEDS ORDERED: pantoprazole 40 MG vial IV SCH (08:00)
[2020-07-03] MEDS: K and/or MAG REPLACEMENT MC SCH ×2 (08:00→20:00)
[2020-07-03] MEDS: budesonide 0.5mg/2ml UD nebule IH SCH ×2 (08:04→19:20)
[2020-07-03] MEDS ORDERED: potassium Cl 20mEq/100mL bag 100 ML IV PRN (08:40)
[2020-07-03] MEDS ORDERED: potassium CL 10mEq/100ml bag 100 ML IV PRN (08:40)
[2020-07-03] MEDS ORDERED: magnesium 4gm in 100ml NS 100 ML IV PRN (08:40)
[2020-07-03] MEDS ORDERED: potassium Cl 20 mEq SR tablet PO PRN ×2 (08:40)
[2020-07-03] MEDS ORDERED: magnesium 2GM in 50ml NS 50 ML IV PRN (08:40)
[2020-07-03] MEDS: HYDROmorphone inj. 0.5 MG/0.5 ML DISP.SYRIN IV PRN (08:50)
[2020-07-03] MEDS: normal saline 1000ml 1,000 ML IV SCH ×2 (08:55→20:41)
[2020-07-03] MEDS: CefTRIAXone/D5W-Rocephin 1gm 50 ML IV SCH (09:04)
[2020-07-03] MEDS: pantoprazole 40mg Tablet.DR PO SCH ×2 (09:04→20:37)
--- NOTE | 2020-07-03 09:15 | NUR ---
i called dr saldaña around 0845 and let him know that the pt continues to be extremel;y painful and anxious. he gave orders to continue to give the ativan as needed, and to try the dose of Dilaudid to see if that helps as well. he stated he would come to the hospital soon.
[2020-07-03] MEDS: clopidogrel 75mg tablet PO SCH (09:51)
[2020-07-03] MEDS: lisinopril 10 MG tablet PO SCH (09:57)
[2020-07-03 09:58] LABS: HEMATOCRIT 25.1 % (35.0-45.0); HEMOGLOBIN 8.2 g/dl (12.0-16.0); MEAN CORPUSCULAR HEMOGLOBIN 28.2 PG (27.0-31.0); MEAN CORPUSCULAR HGB CONC 32.6 g/dL (33.0-36.5); MEAN CORPUSCULAR VOLUME 86.3 FL (78-98); MEAN PLATELET VOLUME 7.2 FL (7.4-10.4); PLATELET COUNT 187 X10'3 (140-440); RED BLOOD COUNT 2.91 X10'6 (4.20-5.60); RED CELL DISTRIBUTION WIDTH 20.6 % (11.5-14.5); WHITE BLOOD COUNT 12.1 X10'3 (4.5-11.0)
[2020-07-03] MEDS: nicotine 14mg patch - 24hr TD SCH (10:04)
[2020-07-03] MEDS: heparin 10,000 units/1 ML INJ IV PRN (10:32)
[2020-07-03] MEDS ORDERED: heparin 10,000 units/1 ML INJ ONE ×2 (10:41→10:48)
[2020-07-03] MEDS ORDERED: morphine 2 MG/ML inj. syringe IV PRN (10:50)
[2020-07-03] MEDS ORDERED: ondansetron/PF 4mg/2ml inj IV PRN (10:50)
[2020-07-03] MEDS ORDERED: morphine 4 MG/ML inj SYRINge IV PRN (10:50)
[2020-07-03] MEDS ORDERED: ringers solution, lacted 1,000 ML IV SCH (10:50)
[2020-07-03] MEDS ORDERED: hydrALAZINE 20mg/ml inj. IV PRN (10:50)
[2020-07-03] MEDS ORDERED: labetalol 20mg/4ml (5mg/ml) syringe IV PRN (10:50)
[2020-07-03] MEDS ORDERED: fentaNYL/PF 50MCG/1 ML 2ML syringe IV PRN ×2 (10:50)
[2020-07-03] MEDS ORDERED: MIDAZolam 1mg/ml 10ml vial ONE (10:57)
[2020-07-03] MEDS ORDERED: fentaNYL /PF 50mcg/ml 5ml ampule ONE (10:57)
--- NOTE | 2020-07-03 11:00 | NUR ---
Dr Hand was present several times between 0930 and 1030. he consulted Dr Davis who was present to examine the pt around 1030. she was taken from the unit at 1100 to go to the OR.
[2020-07-03] MEDS ORDERED: rocuronium 10mg/ml inj IV ONE ×3 (11:07→14:50)
[2020-07-03] MEDS ORDERED: etomidate 2mg/ml inj. ONE (11:07)
[2020-07-03] MEDS ORDERED: succinylcholine 20mg/ml inj IV ONE (11:07)
[2020-07-03] MEDS ORDERED: sevoflurane 250ml liquid IH ONE (11:15)
[2020-07-03] MEDS ORDERED: albumin (Human) 5% 250ml 250 ML IV ONE (11:31)
[2020-07-03] MEDS ORDERED: phenylephrine 10mg/ml inj. ONE (12:29)
[2020-07-03] MEDS ORDERED: heparin 1,000unit/ml 10ml vial 10 ML ONE (13:27)
[2020-07-03 14:21] LABS: BASOPHILS % (AUTO) 0.2 % (0-1); EOSINOPHILS # (AUTO) 0.1 X10'3 (0-0.9); EOSINOPHILS % (AUTO) 0.6 % (0-6); HEMATOCRIT 24.6 % (35.0-45.0); HEMOGLOBIN 8.1 g/dl (12.0-16.0); LYMPHOCYTES # (AUTO) 0.5 X10'3 (1.1-4.8); LYMPHOCYTES % (AUTO) 4.9 % (21-51); MEAN CORPUSCULAR HEMOGLOBIN 28.1 PG (27.0-31.0); MEAN CORPUSCULAR VOLUME 85.1 FL (78-98); MEAN PLATELET VOLUME 7.3 FL (7.4-10.4); MONOCYTES # (AUTO) 0.7 X10'3 (0-0.9); MONOCYTES % (AUTO) 7.4 % (2-12); NEUTROPHILS # (AUTO) 8.6 X10'3 (1.8-7.7); NEUTROPHILS % (AUTO) 86.9 % (42-75); PLATELET COUNT 137 X10'3 (140-440); RED BLOOD COUNT 2.89 X10'6 (4.20-5.60); RED CELL DISTRIBUTION WIDTH 18.6 % (11.5-14.5); WHITE BLOOD COUNT 9.9 X10'3 (4.5-11.0)
[2020-07-03] MEDS ORDERED: iohexol 300 MG/1 ML 50ml polymer ONE ×2 (14:27→14:52)
[2020-07-03] MEDS ORDERED: vancomycin 1,000mg inj ONE ×2 (14:29→15:36)
[2020-07-03 14:37] LABS: ANISOCYTOSIS 2+; PLATELET ESTIMATE DECREASED
[2020-07-03 14:40] LABS: ABG BASE EXCESS 0.2 mmol/L (-2.0-2.0); ABG HCO3 24.1 mmol/L (22.0-26.0); ABG OXYGEN SATURATION 98.3 % (94-97); ABG PCO2 (T) 36.2 mmHg (32.0-45.0); ABG PO2 (T) 137.5 mmHg (75.0-100.0); FCOHb 0.5 % (0.0-3.9); FMetHb 0.1 % (0.0-1.5); FO2Hb 97.7 % (94-97); PEEP 5 cm H2O; RESPIRATORY RATE 12 b/min; TIDAL VOLUME 570 mL; TOTAL HEMOGLOBIN 9.2 G/dl (12.0-16.0)
[2020-07-03] MEDS ORDERED: fentaNYL/PF 50MCG/1 ML 2ML syringe ONE (14:46)
--- NOTE | 2020-07-03 16:45 | NUR ---
pt arrived back from OR at 1645. intubated/sedated. VS WNL. no pulses to L lower leg, and the provena wound vac is without a good seal. the OR reports they were having problems with the seal as well. continue to monitor.
[2020-07-03] MEDS: midazolam 100mg in NS 100ml 100 ML IV SCH (16:49)
[2020-07-03] MEDS: FENTANYL-0.9 % NACL/PF 100 ML IV PRN (16:49)
[2020-07-03 17:00] LABS: ABG BASE EXCESS -3.9 mmol/L (-2.0-2.0); ABG HCO3 20.4 mmol/L (22.0-26.0); ABG OXYGEN SATURATION 98.8 % (94-97); ABG PCO2 (T) 34.7 mmHg (32.0-45.0); FCOHb 0.5 % (0.0-3.9); FMetHb 0.3 % (0.0-1.5); PEEP 5 cm H2O; RESPIRATORY RATE 12 b/min; TIDAL VOLUME 600 mL; TOTAL HEMOGLOBIN 10.7 G/dl (12.0-16.0)
--- NOTE | 2020-07-03 17:45 | NUR ---
i spoke to Dr Hand at this time. he stated he would be by shortly to see the pt and make a decision regarding keeping the sheath in or pulling it out.
--- NOTE | 2020-07-03 18:30 | NUR ---
Patient in room CICU 2014. I have received report from YOLIS Eddy and had the opportunity to ask questions and assume patient care.
--- NOTE | 2020-07-03 18:30 | NUR ---
Problems reprioritized. Patient report given, questions answered & plan of care reviewed with Breana LAGOS.
[2020-07-03 18:56] LABS: HEMOGLOBIN 10.6 g/dl (12.0-16.0); MEAN CORPUSCULAR HEMOGLOBIN 28.4 PG (27.0-31.0); MEAN CORPUSCULAR HGB CONC 33.2 g/dL (33.0-36.5); MEAN CORPUSCULAR VOLUME 85.7 FL (78-98); MEAN PLATELET VOLUME 7.6 FL (7.4-10.4); PLATELET COUNT 128 X10'3 (140-440); RED BLOOD COUNT 3.74 X10'6 (4.20-5.60); RED CELL DISTRIBUTION WIDTH 19.2 % (11.5-14.5); WHITE BLOOD COUNT 9.8 X10'3 (4.5-11.0)
[2020-07-03 19:07] LABS: MAGNESIUM 1.5 MG/DL (1.5-2.4); POTASSIUM 3.5 MMOL/L (3.5-5.1)
[2020-07-03] MEDS: montelukast 10mg tablet PO SCH (20:38)
--- NOTE | 2020-07-03 20:58 | NUR ---
Patient with 201 blood sugar, spoke to hospitalist Dr. Fu and received orders to put patient on hyperglycemic management without long acting insulin being that patient is npo. Will order and start patient on level 2 per protocol.
[2020-07-03] MEDS ORDERED: glucagon, human recombinant 1mg kit SUBCUT PRN (21:00)
[2020-07-03] MEDS ORDERED: MESSAGE TO PHARMACY PO ONE (21:00)
[2020-07-03] MEDS ORDERED: dextrose ORAL solution 15 GM/59 ML bottle PO PRN ×2 (21:00)
[2020-07-03] MEDS ORDERED: dextrose 50%-water 50ml dispensing syringe IV PRN ×2 (21:00)
[2020-07-03 22:04] LABS: HEMOGLOBIN A1C 6.6 % (4.5-6.2)
[2020-07-04] VITALS (24 sets, daily range): BP systolic 87–118; BP diastolic 51–95
[2020-07-04] MEDS: FENTANYL-0.9 % NACL/PF 100 ML IV PRN ×3 (01:24→22:17)
[2020-07-04] MEDS: ipratropium/albuterol 3ml nebule NEB SCH ×6 (03:06→23:10)
[2020-07-04] MEDS: insulin Lispro (HumaLOG) vial - multi-dose SQ SCH ×4 (03:08→22:31)
[2020-07-04 03:33] LABS: BASOPHILS % (AUTO) 0.2 % (0-1); EOSINOPHILS % (AUTO) 0 % (0-6); HEMATOCRIT 28.1 % (35.0-45.0); HEMOGLOBIN 9.3 g/dl (12.0-16.0); LYMPHOCYTES # (AUTO) 0.6 X10'3 (1.1-4.8); MEAN CORPUSCULAR HEMOGLOBIN 28.2 PG (27.0-31.0); MEAN CORPUSCULAR HGB CONC 33.3 g/dL (33.0-36.5); MEAN CORPUSCULAR VOLUME 84.6 FL (78-98); MEAN PLATELET VOLUME 7.8 FL (7.4-10.4); MONOCYTES # (AUTO) 0.9 X10'3 (0-0.9); MONOCYTES % (AUTO) 7.5 % (2-12); NEUTROPHILS # (AUTO) 10.4 X10'3 (1.8-7.7); NEUTROPHILS % (AUTO) 87.3 % (42-75); PLATELET COUNT 139 X10'3 (140-440); RED BLOOD COUNT 3.32 X10'6 (4.20-5.60); RED CELL DISTRIBUTION WIDTH 19.5 % (11.5-14.5); WHITE BLOOD COUNT 11.9 X10'3 (4.5-11.0)
[2020-07-04 03:50] LABS: ALBUMIN 1.9 G/DL (3.4-5.0); ANION GAP 6 (8-16); BLOOD UREA NITROGEN 9 MG/DL (7-18); BUN/CREATININE RATIO 12.3 (6.6-38.0); CALCIUM 7.1 MG/DL (8.5-10.1); CHLORIDE 110 MMOL/L (99-107); CREATININE 0.73 MG/DL (0.40-0.90); GLUCOSE 182 MG/DL (70-104); MAGNESIUM 3.2 MG/DL (1.5-2.4); POTASSIUM 3.3 MMOL/L (3.5-5.1); SODIUM 143 MMOL/L (135-145); eGFR 82 ML/MIN
[2020-07-04 04:01] LABS: ABG BASE EXCESS -2.4 mmol/L (-2.0-2.0); ABG HCO3 21.7 mmol/L (22.0-26.0); ABG PCO2 (T) 34.1 mmHg (32.0-45.0); ABG PO2 (T) 65.8 mmHg (75.0-100.0); FCOHb 0.3 % (0.0-3.9); FMetHb 0.3 % (0.0-1.5); FO2Hb 93.4 % (94-97); PATIENT TEMPERATURE 36.8; PEEP 5 cm H2O; RESPIRATORY RATE 12 b/min; TIDAL VOLUME 600 mL; TOTAL HEMOGLOBIN 9.4 G/dl (12.0-16.0)
[2020-07-04] MEDS: potassium Cl 20mEq/100mL bag 100 ML IV PRN ×2 (05:38→06:59)
--- NOTE | 2020-07-04 06:24 | NUR ---
Problems reprioritized. Patient report given, questions answered & plan of care reviewed with YOLIS Coe.
[2020-07-04 07:58] LABS: TROPONIN I 0.23 NG/ML (0.0-0.05)
[2020-07-04 08:00] LABS: CREATINE KINASE 1845 U/L (26-192)
[2020-07-04] MEDS: K and/or MAG REPLACEMENT MC SCH ×2 (08:00→20:00)
[2020-07-04] MEDS ORDERED: K and/or MAG REPLACEMENT MC SCH (08:00)
[2020-07-04] MEDS: CefTRIAXone/D5W-Rocephin 1gm 50 ML IV SCH (08:16)
[2020-07-04] MEDS: budesonide 0.5mg/2ml UD nebule IH SCH ×2 (08:21→20:28)
[2020-07-04] MEDS: heparin 25,000 UNIT/250ml bag 250 ML IV SCH (08:22)
[2020-07-04] MEDS: lactobacillus rhamnosus 10,000 MMU CELLS/CAPSULE PO SCH ×2 (08:26→22:21)
[2020-07-04] MEDS: pantoprazole 40mg Tablet.DR PO SCH ×2 (08:26→22:21)
[2020-07-04] MEDS: clopidogrel 75mg tablet PO SCH (08:26)
[2020-07-04] MEDS: lisinopril 10 MG tablet PO SCH (08:27)
[2020-07-04] MEDS: nicotine 14mg patch - 24hr TD SCH (08:27)
[2020-07-04] MEDS: atorvastatin 20mg tablet PO SCH (08:27)
[2020-07-04] MEDS: normal saline 1000ml 1,000 ML IV SCH (10:59)
[2020-07-04] MEDS: midazolam 100mg in NS 100ml 100 ML IV SCH (13:08)
--- NOTE | 2020-07-04 16:09 | NUR ---
I have reviewed and agree with all medications administered and interventions performed by [facility] Student(April) Addendum: 07/04/20 at 1609 by Uma Loomis RT Amended: Links added.
--- NOTE | 2020-07-04 16:27 | NUR ---
Initial: Pt admit with PAD. Pt s/p thrombectomy of left leg, fasciotomy bypass, and angioplasty. 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 Pt remains intubated at this time. No nutrition support initiated at this time given possible return to OR. TF recommendations below for if expected prolonged intubation and to receive nutrition support to meet increased protein needs while on the vent to promote wound healing. Heart healthy diet remains active, recommend diet change to NPO as pt intubated. LBM 06/29. PRN bowel care available. Will continue to follow closely. Recommendations: 1) IF TF, continuous Vital High Protein with goal rate of 60 mL/hr to begin at 20 mL/hr and advance by 20 mL Q8H as tolerated to goal rate 2) IF TF, prealbumin q Wednesday/, daily weights 3) Pt may benefit from Irving supplementation for wound healing with initiation of nutrition 4) Routine bowel care Addendum: 07/04/20 at [address] Amended: Links added.
--- NOTE | 2020-07-04 17:11 | NUR ---
Right Femoral arterial sheath removed by filling station laborer and Dr. COMBS at bedside at 1235. Manual pressure applied for 20 minutes and femostop in place. Hematoma and bruising around groin and perineum prior to sheath removal. Md aware. Right dorsalis pedal pulse absent with doppler. Right posterior tibial pulse present with doppler. Right foot Cap refill <3 seconds color pale with blanchable redness around toes and heel. Femostop removed at 1630. Heparin gtt restarted at [address] Combs aware of bilateral foot pulses.
--- NOTE | 2020-07-04 18:30 | NUR ---
Patient in room CICU 2014. I have received report from YOLIS Coe and had the opportunity to ask questions and assume patient care.
[2020-07-04] MEDS: heparin 10,000 units/1 ML INJ IV PRN (22:19)
[2020-07-04] MEDS: montelukast 10mg tablet PO SCH (22:21)
[2020-07-05] VITALS (41 sets, daily range): BP systolic 92–137; BP diastolic 44–74
[2020-07-05] MEDS: normal saline 1000ml 1,000 ML IV SCH ×2 (01:17→04:12)
[2020-07-05] MEDS: insulin Lispro (HumaLOG) vial - multi-dose SQ SCH (02:34)
[2020-07-05 03:51] LABS: ABG BASE EXCESS -0.7 mmol/L (-2.0-2.0); ABG HCO3 23.3 mmol/L (22.0-26.0); ABG PCO2 (T) 35.7 mmHg (32.0-45.0); ALLEN'S TEST POSITIVE; FCOHb 0.1 % (0.0-3.9); FMetHb 0.2 % (0.0-1.5); FO2Hb 95.7 % (94-97); PEEP 5 cm H2O; RESPIRATORY RATE 12 b/min; TIDAL VOLUME 600 mL; TOTAL HEMOGLOBIN 8.3 G/dl (12.0-16.0)
[2020-07-05 05:16] LABS: ALBUMIN 1.6 G/DL (3.4-5.0); ANION GAP 8 (8-16); BLOOD UREA NITROGEN 10 MG/DL (7-18); BUN/CREATININE RATIO 14.5 (6.6-38.0); CALCIUM 7.6 MG/DL (8.5-10.1); CHLORIDE 109 MMOL/L (99-107); CREATININE 0.69 MG/DL (0.40-0.90); GLUCOSE 136 MG/DL (70-104); MAGNESIUM 2.5 MG/DL (1.5-2.4); POTASSIUM 3.5 MMOL/L (3.5-5.1); SODIUM 143 MMOL/L (135-145); TOTAL CARBON DIOXIDE 26.5 MMOL/L (24-32); eGFR 87 ML/MIN
[2020-07-05 05:25] LABS: BASOPHILS % (AUTO) 0.1 % (0-1); EOSINOPHILS % (AUTO) 0.2 % (0-6); HEMATOCRIT 23.2 % (35.0-45.0); HEMOGLOBIN 7.5 g/dl (12.0-16.0); LYMPHOCYTES # (AUTO) 0.9 X10'3 (1.1-4.8); LYMPHOCYTES % (AUTO) 7.1 % (21-51); MEAN CORPUSCULAR HEMOGLOBIN 27.6 PG (27.0-31.0); MEAN CORPUSCULAR HGB CONC 32.5 g/dL (33.0-36.5); MEAN CORPUSCULAR VOLUME 85.1 FL (78-98); MEAN PLATELET VOLUME 7.8 FL (7.4-10.4); MONOCYTES # (AUTO) 1.1 X10'3 (0-0.9); MONOCYTES % (AUTO) 9.1 % (2-12); NEUTROPHILS # (AUTO) 10.1 X10'3 (1.8-7.7); NEUTROPHILS % (AUTO) 83.5 % (42-75); PLATELET COUNT 167 X10'3 (140-440); RED BLOOD COUNT 2.73 X10'6 (4.20-5.60); RED CELL DISTRIBUTION WIDTH 19.8 % (11.5-14.5); WHITE BLOOD COUNT 12.1 X10'3 (4.5-11.0)
--- NOTE | 2020-07-05 06:48 | NUR ---
Problems reprioritized. Patient report given, questions answered & plan of care reviewed with YOLIS Coe.
[2020-07-05] MEDS ORDERED: furosemide 40mg/4ml inj IV ONE (07:25)
[2020-07-05] MEDS: ipratropium/albuterol 3ml nebule NEB SCH ×6 (07:51→22:46)
[2020-07-05] MEDS: budesonide 0.5mg/2ml UD nebule IH SCH ×2 (07:55→19:02)
[2020-07-05] MEDS: lisinopril 10 MG tablet PO SCH (08:00)
[2020-07-05] MEDS: K and/or MAG REPLACEMENT MC SCH ×2 (08:00→19:22)
[2020-07-05 09:21] LABS: HYPOCHROMASIA 1+; PLATELET ESTIMATE NORMAL; POLYCHROMASIA 2+
[2020-07-05 09:22] LABS: ANISOCYTOSIS 2+
[2020-07-05] MEDS ORDERED: vancomycin/NS 1 GM ADD-VANTAGE 250 ML IV ONE (09:25)
--- NOTE | 2020-07-05 09:33 | NUR ---
Per ELBA escobar conversation with Dr Carlisle patient to unstable to try Thoracentesis at this time ICU Nurse informed
[2020-07-05] MEDS: lactobacillus rhamnosus 10,000 MMU CELLS/CAPSULE PO SCH ×2 (10:13→20:00)
[2020-07-05] MEDS: pantoprazole 40mg Tablet.DR PO SCH ×2 (10:14→20:00)
[2020-07-05] MEDS: atorvastatin 20mg tablet PO SCH (10:14)
[2020-07-05] MEDS: clopidogrel 75mg tablet PO SCH (10:14)
[2020-07-05] MEDS: heparin 25,000 UNIT/250ml bag 250 ML IV SCH (10:47)
[2020-07-05] MEDS: nicotine 14mg patch - 24hr TD SCH (10:50)
[2020-07-05 12:30] LABS: CREATINE KINASE 1882 U/L (26-192)
[2020-07-05] MEDS: midazolam 100mg in NS 100ml 100 ML IV SCH (13:16)
[2020-07-05] MEDS: FENTANYL-0.9 % NACL/PF 100 ML IV PRN (13:17)
[2020-07-05] MEDS: piperacillin/tazo 3.375gm/50ml 50 ML IV SCH ×2 (14:44→23:39)
--- NOTE | 2020-07-05 18:10 | NUR ---
Patient in room CICU 2014. I have received report and had the opportunity to ask questions and assume patient care. Pt received sedated & intubated. ETT #7.5 @24cm teeth. Vent settings A/C VC FIO2 35% BUR 12 TV 600. Observed TV 698, oxygen saturation is 92% RR 12/min.Rhythm is sinus HR 94. Palpable radial pulses, left popliteal pulse with doppler only.OGT drains dark yellow secretions, connected to low intermittent wall suction.Skin with multiple bruising on arms & right hip/thigh & pubis. Prevena wound vack to left groin, no drainage. Addendum: 07/05/20 at 1855 by Xiao Licea RN Left foot is cold, mottled, pulses absent. Left foot is painful, pt withdraws when palpated or moved. Right pedal pulse with doppler only. Pt awakens from sedation and bolts straight up in bed, biting ETT. Reoriented without success, does not follow commands, attempts to pull ETT. Fentanyl bolus administered. RT paged for bite block. Carty drains clear yellow urine. Safety precautions observed, bilateral soft wrist restraints secure, bed in low position with brakes on. Pt in direct view, frequent rounds.
--- NOTE | 2020-07-05 18:55 | NUR ---
Anchorfast changed out per RT. ETT at 21cm teeth. Bite block now in place. Oxygen saturation is 94% observed TV 667.
[2020-07-05] MEDS: docusate sodium 100mg/10ml UD cup PO SCH (20:00)
[2020-07-05] MEDS: mineral oil/petrolatum ophthal oint EACHEYE SCH (20:29)
[2020-07-05] MEDS ORDERED: lansoprazole 15mg solutab NG SCH (21:30)
[2020-07-05] MEDS: montelukast 10mg tablet PO SCH (21:47)
[2020-07-05] MEDS: vancomycin/NS 1 GM ADD-VANTAGE 250 ML IV SCH (21:57)
[2020-07-05] MEDS: pantoprazole 40 MG vial IV SCH (23:03)
[2020-07-06] VITALS (42 sets, daily range): BP systolic 76–137; BP diastolic 38–71
[2020-07-06] MEDS: FENTANYL-0.9 % NACL/PF 100 ML IV PRN ×2 (01:00→12:12)
[2020-07-06] MEDS: mineral oil/petrolatum ophthal oint EACHEYE SCH ×4 (02:27→20:27)
[2020-07-06] MEDS: normal saline 1000ml 1,000 ML IV SCH ×2 (02:44→16:05)
[2020-07-06] MEDS: ipratropium/albuterol 3ml nebule NEB SCH ×6 (03:10→22:47)
[2020-07-06 03:39] LABS: ALANINE AMINOTRANSFERASE 13 U/L (12-78); ALBUMIN 1.5 G/DL (3.4-5.0); ALBUMIN/GLOBULIN RATIO 0.4 (1.1-1.5); ALKALINE PHOSPHATASE 43 IU/L (46-116); ANION GAP 8 (8-16); ASPARTATE AMINO TRANSFERASE 69 U/L (10-37); BILIRUBIN,TOTAL 0.8 MG/DL (0.1-1.0); BLOOD UREA NITROGEN 9 MG/DL (7-18); BUN/CREATININE RATIO 13.2 (6.6-38.0); CALCIUM 7.9 MG/DL (8.5-10.1); CHLORIDE 107 MMOL/L (99-107); CREATININE 0.68 MG/DL (0.40-0.90); GLUCOSE 97 MG/DL (70-104); POTASSIUM 3.2 MMOL/L (3.5-5.1); SODIUM 144 MMOL/L (135-145); TOTAL CARBON DIOXIDE 29.1 MMOL/L (24-32); eGFR 89 ML/MIN
[2020-07-06 03:41] LABS: BASOPHILS % (AUTO) 0.2 % (0-1); EOSINOPHILS # (AUTO) 0.2 X10'3 (0-0.9); EOSINOPHILS % (AUTO) 1.9 % (0-6); HEMOGLOBIN 7.1 g/dl (12.0-16.0); LYMPHOCYTES # (AUTO) 0.9 X10'3 (1.1-4.8); LYMPHOCYTES % (AUTO) 8.3 % (21-51); MEAN CORPUSCULAR HEMOGLOBIN 28.3 PG (27.0-31.0); MEAN CORPUSCULAR HGB CONC 32.7 g/dL (33.0-36.5); MEAN CORPUSCULAR VOLUME 86.5 FL (78-98); MEAN PLATELET VOLUME 7.8 FL (7.4-10.4); MONOCYTES # (AUTO) 0.7 X10'3 (0-0.9); MONOCYTES % (AUTO) 6.6 % (2-12); NEUTROPHILS # (AUTO) 8.6 X10'3 (1.8-7.7); PLATELET COUNT 175 X10'3 (140-440); WHITE BLOOD COUNT 10.3 X10'3 (4.5-11.0)
[2020-07-06 03:59] LABS: HEMATOCRIT 21.6 % (35.0-45.0)
[2020-07-06] MEDS: potassium Cl 20mEq/100mL bag 100 ML IV PRN ×2 (04:12→05:05)
[2020-07-06 04:20] LABS: ABG BASE EXCESS -0.8 mmol/L (-2.0-2.0); ABG HCO3 23.5 mmol/L (22.0-26.0); ABG OXYGEN SATURATION 90.4 % (94-97); ABG PCO2 (T) 38.6 mmHg (32.0-45.0); ABG PO2 (T) 64.3 mmHg (75.0-100.0); FCOHb 0.5 % (0.0-3.9); FMetHb 0.2 % (0.0-1.5); FO2Hb 89.8 % (94-97); PATIENT TEMPERATURE 37.9; PEEP 5 cm H2O; RESPIRATORY RATE 12 b/min; TIDAL VOLUME 600 mL; TOTAL HEMOGLOBIN 8.1 G/dl (12.0-16.0)
--- NOTE | 2020-07-06 04:20 | NUR ---
Hgb. 7.1 Hct. 21.6 results called to Elsi Brady NP. Order received for 1 U PRBC to be transfused. No active bleeding noted. Rhythm is sinus HR 97 BP 96/47. Potassium replacement is in progress for K+ 3.2.
--- NOTE | 2020-07-06 05:37 | NUR ---
IV sedation off at this time for sedation vacation. Rhythm is sinus HR 97 CVP 10-14. Oxygen saturation is 94% on A/C VC 35% FIO2 TV 600 +5 PEEP. K+ 40 meq. replaced for K+ 3.2. PRBC ordered. Left foot remains mottled/cool without pulses. Left popliteal pulse is audible/intermittent with doppler. Right lower extremity pulses with doppler. Urine output 40-100ml/hr. Patients sister Lynne Freire has consented for surgery and can be contacted for further consents.
[2020-07-06 05:51] LABS: MAGNESIUM 2.2 MG/DL (1.5-2.4)
--- NOTE | 2020-07-06 06:20 | NUR ---
Problems reprioritized. Patient report given, questions answered & plan of care reviewed.
[2020-07-06] MEDS: lisinopril 10 MG tablet PO SCH (08:00)
[2020-07-06] MEDS: lactobacillus rhamnosus 10,000 MMU CELLS/CAPSULE PO SCH ×2 (08:00→20:18)
[2020-07-06] MEDS: atorvastatin 20mg tablet PO SCH (08:00)
[2020-07-06] MEDS: nicotine 14mg patch - 24hr TD SCH (08:00)
[2020-07-06] MEDS: docusate sodium 100mg/10ml UD cup PO SCH ×2 (08:00→20:18)
[2020-07-06] MEDS: clopidogrel 75mg tablet PO SCH (08:00)
[2020-07-06] MEDS: K and/or MAG REPLACEMENT MC SCH ×2 (08:00→20:00)
[2020-07-06] MEDS: budesonide 0.5mg/2ml UD nebule IH SCH ×2 (08:01→18:57)
[2020-07-06] MEDS: piperacillin/tazo 3.375gm/50ml 50 ML IV SCH ×3 (08:04→23:52)
[2020-07-06] MEDS: pantoprazole 40 MG vial IV SCH ×2 (08:04→20:19)
[2020-07-06 08:47] LABS: ANISOCYTOSIS 2+; HYPOCHROMASIA 1+; PLATELET ESTIMATE NORMAL; POLYCHROMASIA 2+
[2020-07-06] MEDS: midazolam 100mg in NS 100ml 100 ML IV SCH (08:52)
[2020-07-06] MEDS ORDERED: cloNIDine hcl/PF 100mcg/ml inj ONE (11:27)
[2020-07-06] MEDS: vancomycin/NS 1 GM ADD-VANTAGE 250 ML IV SCH ×2 (11:35→22:00)
[2020-07-06] MEDS ORDERED: acetaminophen 1000 MG/100ml vial IV ONE (12:10)
[2020-07-06] MEDS ORDERED: sevoflurane 250ml liquid IH ONE (12:10)
[2020-07-06] MEDS ORDERED: NORepinephrine 8 MG in NS 250 ML BAG (32 mcg/ml) IV ONE (12:10)
--- NOTE | 2020-07-06 12:14 | NUR ---
PATIENT TO OR
[2020-07-06 12:16] LABS: BASOPHILS # (AUTO) 0.1 X10'3 (0-0.2); BASOPHILS % (AUTO) 0.8 % (0-1); EOSINOPHILS # (AUTO) 0.4 X10'3 (0-0.9); EOSINOPHILS % (AUTO) 3.1 % (0-6); HEMATOCRIT 26.6 % (35.0-45.0); HEMOGLOBIN 8.5 g/dl (12.0-16.0); LYMPHOCYTES % (AUTO) 8.8 % (21-51); MEAN CORPUSCULAR HEMOGLOBIN 28.2 PG (27.0-31.0); MEAN CORPUSCULAR HGB CONC 32.1 g/dL (33.0-36.5); MEAN CORPUSCULAR VOLUME 87.8 FL (78-98); MEAN PLATELET VOLUME 7.9 FL (7.4-10.4); MONOCYTES # (AUTO) 0.7 X10'3 (0-0.9); MONOCYTES % (AUTO) 6.2 % (2-12); NEUTROPHILS # (AUTO) 9.2 X10'3 (1.8-7.7); NEUTROPHILS % (AUTO) 81.1 % (42-75); PLATELET COUNT 181 X10'3 (140-440); RED BLOOD COUNT 3.03 X10'6 (4.20-5.60); RED CELL DISTRIBUTION WIDTH 19.4 % (11.5-14.5); WHITE BLOOD COUNT 11.4 X10'3 (4.5-11.0)
--- NOTE | 2020-07-06 12:30 | NUR ---
patient report given to Kalani LAGOS
--- NOTE | 2020-07-06 12:30 | NUR ---
Patient in room CICU 2014. I have received report from Anabel LAGOS and had the opportunity to ask questions and assume patient care.
[2020-07-06 12:36] LABS: ALANINE AMINOTRANSFERASE 13 U/L (12-78); ALBUMIN 1.6 G/DL (3.4-5.0); ALBUMIN/GLOBULIN RATIO 0.4 (1.1-1.5); ALKALINE PHOSPHATASE 49 IU/L (46-116); ANION GAP 9 (8-16); ASPARTATE AMINO TRANSFERASE 83 U/L (10-37); BLOOD UREA NITROGEN 9 MG/DL (7-18); BUN/CREATININE RATIO 12.9 (6.6-38.0); CALCIUM 7.9 MG/DL (8.5-10.1); CHLORIDE 108 MMOL/L (99-107); GLUCOSE 93 MG/DL (70-104); MAGNESIUM 2.2 MG/DL (1.5-2.4); PHOSPHORUS 2.5 MG/DL (2.3-4.5); POTASSIUM 3.5 MMOL/L (3.5-5.1); SODIUM 144 MMOL/L (135-145); TOTAL CARBON DIOXIDE 26.6 MMOL/L (24-32); TOTAL PROTEIN 5.3 G/DL (6.4-8.2); eGFR 86 ML/MIN
[2020-07-06] MEDS ORDERED: ROPIVAcaine 0.5% (5mg/ml) 30ml vial ONE (13:05)
[2020-07-06] MEDS ORDERED: dexamethasone sod phosphate 4mg/ml inj. ONE (13:05)
[2020-07-06] MEDS ORDERED: ondansetron/PF 4mg/2ml inj ONE (13:08)
--- NOTE | 2020-07-06 13:26 | NUR ---
TF consult: Pt remains intubated at this time. In OR for left BKA. Pt would benefit from Irving for wound healing needs post-op. Recommendations below. Still no BM since 06/29. Pt started on routine bowel care 07/05 and received first dose of PRN bowel care 07/05. Will continue to follow closely. Recommendations: 1) Continuous Vital High Protein with goal rate of 60 mL/hr to begin at 20 mL/hr and advance by 20 mL Q8H as tolerated to goal rate. To provide: 1440 mL total volume/day, 1440 kcal, 126 g protein, and 1204 mL water 2) Additional 200 mL water flush Q4H 3) Irving with water flushes BID for wound healing. To administer, mix 1 packet of Irving with 140 mL water and flush tube with 30 mL of water before and after Irving administration. 4) Prealbumin q Wednesday/, daily weights 5) Routine bowel care Addendum: 07/06/20 at [address] Amended: Links added.
--- NOTE | 2020-07-06 13:47 | NUR ---
Received pt from OR at 1325. Received pt report from Leda LAGOS. PT L BKA dressing CDI. Vitals WNL. RT Radial ART line not flowing after trouble shooting. Hooked up CVP to left Central line. Per MD continue to monitor and to leave dressing alone. Elevate stump.
[2020-07-06] MEDS: NORepinephrine 8mg/ 250ml NS 250 ML IV SCH (15:40)
--- NOTE | 2020-07-06 15:42 | NUR ---
notified Dr. Hayes of patient's SBP in the 70s on art line, CVP of 15, receiving NS @ 60cc/hr and has been back from surgery since 1325. Orders received for levophed.
[2020-07-06] MEDS ORDERED: normal saline 1000ml 1,000 ML IV ONE (16:05)
--- NOTE | 2020-07-06 18:20 | NUR ---
Patient in room CICU 2007. I have received report from Kalani LAGOS and had the opportunity to ask questions and assume patient care. Pt received orally intubated #7.5 ETT @ 21cm teeth. On A/C VC mode FIO2 35% bur 12 TV 600 +5 PEEP. Oxygen saturation is 98%. Rhythm is sinus. Pt is sedated, awakens to name & nodds no when asked if she is in pain. Pt is on fentanyl & versed IV sedation. RASS score -2. Left BKA with clean dry knee sock, hemovac drain with scant amount of dark red blood along tubing. Left thigh/groin with PREVENA wound vac, no drainage. Ecchymosis to right groin/thigh/hip and pubic area. OGT to low intermittent wall suction draining dark green fluid.Carty cath drains clear yellow urine. No distress at shift change.
--- NOTE | 2020-07-06 19:00 | NUR ---
Patients mother Annika called nurses station, parent updated & aware that pt remains intubated, she is able to nodd yes/no, denies pain at this time. Mother will call again tomorrow for an update.
[2020-07-06] MEDS: montelukast 10mg tablet PO SCH (20:18)
[2020-07-06] MEDS ORDERED: VANCOMYCIN LEVEL IV ONE (21:30)
--- NOTE | 2020-07-06 23:38 | NUR ---
Call placed to Eugene Ward. Physician updated regarding left BKA hemovac drain that came out. Drainage amount 50ml since surgery today. No new orders. Sutures intact to skin.
[2020-07-07] VITALS (31 sets, daily range): BP systolic 96–137; BP diastolic 36–96
[2020-07-07] MEDS: normal saline 1000ml 1,000 ML IV SCH (00:38)
[2020-07-07] MEDS: FENTANYL-0.9 % NACL/PF 100 ML IV PRN ×2 (02:01→17:01)
[2020-07-07 02:56] LABS: BASOPHILS # (AUTO) 0.1 X10'3 (0-0.2); BASOPHILS % (AUTO) 0.6 % (0-1); EOSINOPHILS # (AUTO) 0.1 X10'3 (0-0.9); EOSINOPHILS % (AUTO) 1.3 % (0-6); HEMATOCRIT 24.5 % (35.0-45.0); HEMOGLOBIN 7.9 g/dl (12.0-16.0); LYMPHOCYTES # (AUTO) 0.5 X10'3 (1.1-4.8); LYMPHOCYTES % (AUTO) 4.2 % (21-51); MEAN CORPUSCULAR HEMOGLOBIN 28.2 PG (27.0-31.0); MEAN CORPUSCULAR HGB CONC 32.2 g/dL (33.0-36.5); MEAN CORPUSCULAR VOLUME 87.6 FL (78-98); MONOCYTES # (AUTO) 0.5 X10'3 (0-0.9); MONOCYTES % (AUTO) 4.5 % (2-12); NEUTROPHILS # (AUTO) 10.3 X10'3 (1.8-7.7); NEUTROPHILS % (AUTO) 89.4 % (42-75); PLATELET COUNT 189 X10'3 (140-440); RED CELL DISTRIBUTION WIDTH 18.8 % (11.5-14.5); WHITE BLOOD COUNT 11.5 X10'3 (4.5-11.0)
[2020-07-07] MEDS: ipratropium/albuterol 3ml nebule NEB SCH ×6 (03:48→23:02)
[2020-07-07 04:12] LABS: CHLORIDE 110 MMOL/L (99-107); SODIUM 142 MMOL/L (135-145)
[2020-07-07 04:45] LABS: ABG BASE EXCESS -2.4 mmol/L (-2.0-2.0); ABG HCO3 22.1 mmol/L (22.0-26.0); ABG PCO2 (T) 35.9 mmHg (32.0-45.0); ABG PO2 (T) 78.2 mmHg (75.0-100.0); FCOHb 1.1 % (0.0-3.9); FMetHb 0.2 % (0.0-1.5); FO2Hb 93.8 % (94-97); PATIENT TEMPERATURE 36.9; PEEP 5 cm H2O; RESPIRATORY RATE 12 b/min; TIDAL VOLUME 600 mL; TOTAL HEMOGLOBIN 7.5 G/dl (12.0-16.0)
[2020-07-07 04:46] LABS: ALBUMIN 1.4 G/DL (3.4-5.0); ANION GAP 10 (8-16); BLOOD UREA NITROGEN 10 MG/DL (7-18); BUN/CREATININE RATIO 15.6 (6.6-38.0); CALCIUM 7.5 MG/DL (8.5-10.1); CREATININE 0.64 MG/DL (0.40-0.90); GLUCOSE 116 MG/DL (70-104); MAGNESIUM 2.1 MG/DL (1.5-2.4); TOTAL CARBON DIOXIDE 22.2 MMOL/L (24-32); eGFR > 90 ML/MIN
[2020-07-07] MEDS: NORepinephrine 8mg/ 250ml NS 250 ML IV SCH ×2 (06:28→21:16)
--- NOTE | 2020-07-07 06:36 | NUR ---
Problems reprioritized. Patient report given, questions answered & plan of care reviewed .
[2020-07-07] MEDS: budesonide 0.5mg/2ml UD nebule IH SCH ×2 (07:09→18:57)
[2020-07-07] MEDS: K and/or MAG REPLACEMENT MC SCH ×2 (08:00→20:00)
[2020-07-07] MEDS: mineral oil/petrolatum ophthal oint EACHEYE SCH ×4 (08:00→20:01)
[2020-07-07] MEDS: piperacillin/tazo 3.375gm/50ml 50 ML IV SCH ×2 (08:32→15:51)
[2020-07-07] MEDS: pantoprazole 40 MG vial IV SCH ×2 (08:32→20:01)
[2020-07-07] MEDS: atorvastatin 20mg tablet PO SCH (08:34)
[2020-07-07] MEDS: docusate sodium 100mg/10ml UD cup PO SCH ×2 (08:34→20:00)
[2020-07-07] MEDS: lisinopril 10 MG tablet PO SCH ×2 (08:34→09:36)
[2020-07-07] MEDS: lactobacillus rhamnosus 10,000 MMU CELLS/CAPSULE PO SCH ×2 (08:34→20:00)
[2020-07-07] MEDS: clopidogrel 75mg tablet PO SCH (08:34)
[2020-07-07] MEDS: nicotine 14mg patch - 24hr TD SCH (08:34)
[2020-07-07] MEDS: vancomycin/NS 1 GM ADD-VANTAGE 250 ML IV SCH (09:50)
[2020-07-07] MEDS: midazolam 100mg in NS 100ml 100 ML IV SCH ×2 (10:50→12:04)
--- NOTE | 2020-07-07 18:10 | NUR ---
Patient in room CICU 2007. I have received report from Dahlia LAGOS and had the opportunity to ask questions and assume patient care. Pt. remains orally intubated #7.5ETT @ 21cm teeth. Vent mode is CPAP/PS FIO2 35% + 5 PEEP PS 15. RR 15 oxygen saturation is 95%. Pt is sedated on fentanyl & versed drips. Rhythm is sinus without ectopy. Left subclavian quad lumen central line is intact, dressing is dated 07/02/20. Line is transduced to CVP. Left BKA with stump dressing /sock. Prevena wound vac to left groin/thigh device is secure no leaks.Right groin approach site with occlusive dressing. Right thigh/hip/groin & pubic area with ecchymosis. Right lower extremity pulses with Doppler only. Carty cath drains clear yellow urine . Safety precautions observed. Bilateral soft wrist restraints are secure, bed is locked in low position with 4 side rails up. Pt is in direct view of RN & frequent rounds made. No distress at shift change.
[2020-07-07] MEDS: VANCOmycin 1250MG/NS 250ml Bag 250 ML IV SCH (22:39)
[2020-07-07] MEDS: montelukast 10mg tablet PO SCH (22:42)
[2020-07-08] VITALS (27 sets, daily range): BP systolic 82–145; BP diastolic 40–69
[2020-07-08] MEDS: piperacillin/tazo 3.375gm/50ml 50 ML IV SCH ×3 (00:31→15:04)
[2020-07-08] MEDS: mineral oil/petrolatum ophthal oint EACHEYE SCH ×4 (01:33→20:27)
[2020-07-08 02:10] LABS: ABG BASE EXCESS -3.2 mmol/L (-2.0-2.0); ABG HCO3 21.7 mmol/L (22.0-26.0); ABG OXYGEN SATURATION 93.3 % (94-97); ABG PCO2 (T) 38.1 mmHg (32.0-45.0); ABG PO2 (T) 71.9 mmHg (75.0-100.0); ALLEN'S TEST POSITIVE; FCOHb 0.5 % (0.0-3.9); FMetHb 0.3 % (0.0-1.5); FO2Hb 92.6 % (94-97); PEEP 5 cm H2O; TOTAL HEMOGLOBIN 8.6 G/dl (12.0-16.0)
[2020-07-08] MEDS: ipratropium/albuterol 3ml nebule NEB SCH ×6 (02:41→23:27)
[2020-07-08 03:17] LABS: BASOPHILS % (AUTO) 0.2 % (0-1); EOSINOPHILS # (AUTO) 0.5 X10'3 (0-0.9); EOSINOPHILS % (AUTO) 3.6 % (0-6); HEMATOCRIT 24.1 % (35.0-45.0); HEMOGLOBIN 7.8 g/dl (12.0-16.0); LYMPHOCYTES # (AUTO) 0.8 X10'3 (1.1-4.8); LYMPHOCYTES % (AUTO) 6.4 % (21-51); MEAN CORPUSCULAR HEMOGLOBIN 28.2 PG (27.0-31.0); MEAN CORPUSCULAR HGB CONC 32.4 g/dL (33.0-36.5); MEAN CORPUSCULAR VOLUME 87.3 FL (78-98); MEAN PLATELET VOLUME 8.1 FL (7.4-10.4); MONOCYTES # (AUTO) 0.6 X10'3 (0-0.9); MONOCYTES % (AUTO) 4.6 % (2-12); NEUTROPHILS % (AUTO) 85.2 % (42-75); PLATELET COUNT 218 X10'3 (140-440); RED BLOOD COUNT 2.76 X10'6 (4.20-5.60); WHITE BLOOD COUNT 12.9 X10'3 (4.5-11.0)
[2020-07-08 03:39] LABS: ALBUMIN 1.4 G/DL (3.4-5.0); ANION GAP 10 (8-16); BLOOD UREA NITROGEN 14 MG/DL (7-18); BUN/CREATININE RATIO 20.9 (6.6-38.0); CALCIUM 7.8 MG/DL (8.5-10.1); CHLORIDE 110 MMOL/L (99-107); CREATININE 0.67 MG/DL (0.40-0.90); GLUCOSE 155 MG/DL (70-104); POTASSIUM 3.1 MMOL/L (3.5-5.1); SODIUM 145 MMOL/L (135-145); TOTAL CARBON DIOXIDE 25.4 MMOL/L (24-32); eGFR 90 ML/MIN
[2020-07-08] MEDS: potassium Cl 20mEq/100mL bag 100 ML IV PRN ×6 (04:17→21:40)
[2020-07-08] MEDS: FENTANYL-0.9 % NACL/PF 100 ML IV PRN ×2 (05:42→13:56)
[2020-07-08] MEDS: midazolam 100mg in NS 100ml 100 ML IV SCH (05:43)
--- NOTE | 2020-07-08 06:16 | NUR ---
Problems reprioritized. Patient report given, questions answered & plan of care reviewed.
[2020-07-08 06:26] LABS: MAGNESIUM 1.9 MG/DL (1.5-2.4)
[2020-07-08] MEDS: lactobacillus rhamnosus 10,000 MMU CELLS/CAPSULE PO SCH (07:18)
[2020-07-08] MEDS: docusate sodium 100mg/10ml UD cup PO SCH (07:19)
[2020-07-08] MEDS: K and/or MAG REPLACEMENT MC SCH ×2 (07:19→18:59)
[2020-07-08] MEDS: atorvastatin 20mg tablet PO SCH (07:19)
[2020-07-08] MEDS: pantoprazole 40 MG vial IV SCH ×2 (07:19→20:25)
[2020-07-08] MEDS: nicotine 14mg patch - 24hr TD SCH (07:19)
[2020-07-08] MEDS: clopidogrel 75mg tablet PO SCH (07:19)
[2020-07-08] MEDS: budesonide 0.5mg/2ml UD nebule IH SCH ×2 (08:23→19:12)
[2020-07-08] MEDS: VANCOmycin 1250MG/NS 250ml Bag 250 ML IV SCH ×2 (10:18→22:46)
[2020-07-08] MEDS: normal saline 1000ml 1,000 ML IV SCH (10:18)
[2020-07-08] MEDS: lisinopril 10 MG tablet PO SCH (10:18)
--- NOTE | 2020-07-08 11:12 | NUR ---
Reassessment: Per RN at rounds no BM since 06/29, will begin receiving relistor and reglan per . Otherwise, is tolerating tube feeding at goal rate. Pt intubated, sedated. S/p left BKA 07/06, Pt would benefit from Irving for wound healing needs post-op. Recommendations below. Recommendations: 1) Continuous Vital High Protein with goal rate of 60 mL/hr. To provide: 1440 mL total volume/day, 1440 kcal, 126 g protein, and 1204 mL water 2) Additional 200 mL water flush Q4H 3) Irving with water flushes BID for wound healing. To administer, mix 1 packet of Irving with 140 mL water and flush tube with 30 mL of water before and after Irving administration. 4) Prealbumin q Wednesday/, daily weights 5) Routine bowel care Addendum: 07/08/20 at [address] Amended: Links added.
[2020-07-08] MEDS ORDERED: metoclopramide 5 mg/ml inj IV PRN (11:15)
[2020-07-08] MEDS: NORepinephrine 8mg/ 250ml NS 250 ML IV SCH (11:17)
[2020-07-08] MEDS: dexmedetomidin/NS 400mcg/100ml 100 ML IV SCH ×2 (11:32→21:07)
[2020-07-08] MEDS ORDERED: dextrose ORAL solution 15 GM/59 ML bottle OGT PRN ×2 (12:03)
[2020-07-08] MEDS ORDERED: LORazepam 1 MG tablet OGT PRN (12:03)
[2020-07-08] MEDS ORDERED: magnesium hydroxide 30ml (MOM) UD suspension OGT PRN (12:05)
[2020-07-08] MEDS ORDERED: POTASSIUM BICARB 20meq eff tab 20 MEQ TABLET.EFF OGT PRN (12:07)
[2020-07-08] MEDS: furosemide 20 MG/2 ML vial IV SCH ×2 (13:56→20:00)
--- NOTE | 2020-07-08 14:13 | NUR ---
WOUND CARE NURSE AT BEDSIDE, WOUND VAC ALERTING LOSS OF SEAL. WOUND CARE NURSE CALLED DR DUFF TO ADVISE. PER WOUND CARE NURSE OK TO REMOVE WOUND VAC AND PLACE ISLAND DRESSING.
[2020-07-08 17:50] LABS: ALANINE AMINOTRANSFERASE 11 U/L (12-78); ALBUMIN 1.5 G/DL (3.4-5.0); ALBUMIN/GLOBULIN RATIO 0.3 (1.1-1.5); ALKALINE PHOSPHATASE 64 IU/L (46-116); ANION GAP 9 (8-16); ASPARTATE AMINO TRANSFERASE 27 U/L (10-37); BILIRUBIN,TOTAL 0.6 MG/DL (0.1-1.0); BLOOD UREA NITROGEN 13 MG/DL (7-18); BUN/CREATININE RATIO 16.9 (6.6-38.0); CHLORIDE 106 MMOL/L (99-107); CREATININE 0.77 MG/DL (0.40-0.90); GLUCOSE 174 MG/DL (70-104); MAGNESIUM 1.9 MG/DL (1.5-2.4); PHOSPHORUS 1.8 MG/DL (2.3-4.5); SODIUM 143 MMOL/L (135-145); TOTAL CARBON DIOXIDE 27.6 MMOL/L (24-32); TOTAL PROTEIN 5.8 G/DL (6.4-8.2); eGFR 77 ML/MIN
--- NOTE | 2020-07-08 18:08 | NUR ---
Patient in room CICU 2008. I have received report from Dahlia LAGOS and had the opportunity to ask questions and assume patient care.
[2020-07-08 18:09] LABS: POTASSIUM 2.9 MMOL/L (3.5-5.1)
[2020-07-08] MEDS: ARGININE/GLUTAMINE/CALCIUM BMB (JUVEN 19.3GM PKT) 1 EACH POWD.PACK PO SCH (20:00)
[2020-07-08] MEDS: lactobacillus rhamnosus 10,000 MMU CELLS/CAPSULE OGT SCH (20:26)
[2020-07-08] MEDS: docusate sodium 100mg/10ml UD cup OGT SCH (20:26)
--- NOTE | 2020-07-08 20:53 | NUR ---
Pharmacy contacted as pt has met hyperglycemic protocol management. Unable to put in protocol orders as they read duplicate, unable to administer insulins as they are not on MAR.. Pharmacist contacted and will add to EMAR profile and send required insulins ashwin. Unable to administer or start protocol at this time. Pt.s K+ is 2.9 with potassium replacements in progress. Unable to give lasix at this time. Will administer when K+ is replaced.
[2020-07-08] MEDS: insulin regular, human U-100 3ml vial - multi-dose SQ SCH (21:29)
[2020-07-08] MEDS: insulin glargine (Lantus) pen - multi-dose SQ SCH (21:45)
[2020-07-08] MEDS: montelukast 10mg tablet OGT SCH (22:48)
[2020-07-09] VITALS (29 sets, daily range): BP systolic 86–143; BP diastolic 42–70
[2020-07-09] MEDS: piperacillin/tazo 3.375gm/50ml 50 ML IV SCH ×3 (00:10→15:06)
[2020-07-09] MEDS: insulin regular, human U-100 3ml vial - multi-dose SQ SCH ×4 (02:02→20:01)
[2020-07-09] MEDS: FENTANYL-0.9 % NACL/PF 100 ML IV PRN ×2 (02:04→15:07)
[2020-07-09] MEDS: mineral oil/petrolatum ophthal oint EACHEYE SCH ×4 (02:06→20:00)
[2020-07-09] MEDS: NORepinephrine 8mg/ 250ml NS 250 ML IV SCH (02:52)
[2020-07-09] MEDS: ipratropium/albuterol 3ml nebule NEB SCH ×6 (03:01→23:37)
[2020-07-09 03:03] LABS: ALBUMIN 1.5 G/DL (3.4-5.0); ANION GAP 9 (8-16); BLOOD UREA NITROGEN 12 MG/DL (7-18); BUN/CREATININE RATIO 15.4 (6.6-38.0); CHLORIDE 105 MMOL/L (99-107); CREATININE 0.78 MG/DL (0.40-0.90); GLUCOSE 168 MG/DL (70-104); POTASSIUM 3.5 MMOL/L (3.5-5.1); SODIUM 142 MMOL/L (135-145); TOTAL CARBON DIOXIDE 28.3 MMOL/L (24-32); eGFR 76 ML/MIN
[2020-07-09 03:14] LABS: BASOPHILS # (AUTO) 0.1 X10'3 (0-0.2); BASOPHILS % (AUTO) 0.8 % (0-1); EOSINOPHILS # (AUTO) 0.6 X10'3 (0-0.9); EOSINOPHILS % (AUTO) 4.6 % (0-6); HEMATOCRIT 27.2 % (35.0-45.0); HEMOGLOBIN 8.7 g/dl (12.0-16.0); LYMPHOCYTES # (AUTO) 1.3 X10'3 (1.1-4.8); LYMPHOCYTES % (AUTO) 11.1 % (21-51); MEAN CORPUSCULAR HGB CONC 32.1 g/dL (33.0-36.5); MEAN CORPUSCULAR VOLUME 87.2 FL (78-98); MEAN PLATELET VOLUME 8.2 FL (7.4-10.4); MONOCYTES # (AUTO) 0.7 X10'3 (0-0.9); NEUTROPHILS # (AUTO) 9.3 X10'3 (1.8-7.7); NEUTROPHILS % (AUTO) 77.5 % (42-75); PLATELET COUNT 235 X10'3 (140-440); RED BLOOD COUNT 3.12 X10'6 (4.20-5.60); RED CELL DISTRIBUTION WIDTH 19.1 % (11.5-14.5)
[2020-07-09 03:16] LABS: ABG BASE EXCESS 0.4 mmol/L (-2.0-2.0); ABG HCO3 25.1 mmol/L (22.0-26.0); ABG OXYGEN SATURATION 91.1 % (94-97); ABG PCO2 (T) 41.2 mmHg (32.0-45.0); ABG PO2 (T) 62.6 mmHg (75.0-100.0); ALLEN'S TEST POSITIVE; FCOHb 0.3 % (0.0-3.9); FMetHb 0.1 % (0.0-1.5); FO2Hb 90.7 % (94-97); PATIENT TEMPERATURE 37.4; PEEP 5 cm H2O; TOTAL HEMOGLOBIN 9.3 G/dl (12.0-16.0)
[2020-07-09] MEDS: furosemide 20 MG/2 ML vial IV SCH ×4 (03:46→20:00)
[2020-07-09] MEDS: midazolam 100mg in NS 100ml 100 ML IV SCH (04:29)
[2020-07-09] MEDS: dexmedetomidin/NS 400mcg/100ml 100 ML IV SCH ×3 (04:30→20:02)
--- NOTE | 2020-07-09 06:27 | NUR ---
Problems reprioritized. Patient report given, questions answered & plan of care reviewed.
[2020-07-09] MEDS: budesonide 0.5mg/2ml UD nebule IH SCH ×2 (07:19→18:56)
[2020-07-09] MEDS: docusate sodium 100mg/10ml UD cup OGT SCH ×2 (08:00→20:00)
[2020-07-09] MEDS: K and/or MAG REPLACEMENT MC SCH ×2 (08:00→18:59)
[2020-07-09] MEDS: pantoprazole 40 MG vial IV SCH ×2 (08:02→20:19)
[2020-07-09] MEDS: atorvastatin 20mg tablet OGT SCH (08:03)
[2020-07-09] MEDS: lisinopril 10 MG tablet OGT SCH (08:03)
[2020-07-09] MEDS: clopidogrel 75mg tablet OGT SCH (08:03)
[2020-07-09] MEDS: lactobacillus rhamnosus 10,000 MMU CELLS/CAPSULE OGT SCH ×2 (08:03→20:19)
[2020-07-09] MEDS: ARGININE/GLUTAMINE/CALCIUM BMB (JUVEN 19.3GM PKT) 1 EACH POWD.PACK PO SCH ×2 (08:06→20:00)
[2020-07-09] MEDS: nicotine 14mg patch - 24hr TD SCH (08:11)
[2020-07-09] MEDS ORDERED: VANCOMYCIN LEVEL IV ONE (09:30)
[2020-07-09 09:37] LABS: MAGNESIUM 1.6 MG/DL (1.5-2.4)
[2020-07-09] MEDS: potassium Cl 20mEq/100mL bag 100 ML IV PRN ×6 (10:19→21:19)
[2020-07-09] MEDS: VANCOmycin 1250MG/NS 250ml Bag 250 ML IV SCH ×2 (10:40→23:22)
[2020-07-09] MEDS: acetaminophen 325mg/10.15ml oral unit dose solution OGT PRN (11:37)
[2020-07-09] MEDS: heparin, porcine 5000 units/ml vial SQ SCH ×2 (13:07→20:19)
[2020-07-09] MEDS ORDERED: iohexol 300mg/ml 100ml inj. ONE (15:59)
--- NOTE | 2020-07-09 18:10 | NUR ---
Patient in room CICU 2007. I have received report and had the opportunity to ask questions and assume patient care.
--- NOTE | 2020-07-09 18:11 | NUR ---
Problems reprioritized. Patient report given, questions answered & plan of care reviewed with Xiao.
[2020-07-09 19:15] LABS: POTASSIUM 3.4 MMOL/L (3.5-5.1)
[2020-07-09 19:24] LABS: MAGNESIUM 1.7 MG/DL (1.5-2.4)
[2020-07-09] MEDS: insulin glargine (Lantus) pen - multi-dose SQ SCH (19:59)
[2020-07-09] MEDS: montelukast 10mg tablet OGT SCH (20:18)
--- NOTE | 2020-07-09 20:30 | NUR ---
K+ 3.4 replacement in progress. Lasix not given at this time, will recheck K+ after replacement is complete. Pt also having liquid stools.
--- NOTE | 2020-07-09 22:43 | NUR ---
Unable to contact pharmacist at this time regarding Vanco level 20.9 and administration of vancomycin IVPB. Pharmacy is on a CODE at 2230 on another unit. Addendum: 07/09/20 at 2326 by Xiao Licea RN Vanco trough 20.5 not 20.9
--- NOTE | 2020-07-09 22:58 | NUR ---
Pt is fully awake on 90 mcg fentanyl/hr. Tries to mouth words & is able to follows commands. 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 Call placed to CAROL Brady awaiting return call.
--- NOTE | 2020-07-09 23:09 | NUR ---
LICENSING OFFICER Elsi Brady contacted, update given. Pt's BP becomes low on precedex. Order received to restart versed drip. Pt remains combative trying to bite ETT thrashing . Oxygen saturation 95%. BP 128/70 SR HR 90.
[2020-07-10] VITALS (23 sets, daily range): BP systolic 84–155; BP diastolic 37–80
[2020-07-10] MEDS: piperacillin/tazo 3.375gm/50ml 50 ML IV SCH ×3 (00:24→15:12)
[2020-07-10] MEDS: FENTANYL-0.9 % NACL/PF 100 ML IV PRN ×3 (01:51→21:56)
[2020-07-10] MEDS: insulin regular, human U-100 3ml vial - multi-dose SQ SCH ×2 (01:57→07:30)
[2020-07-10] MEDS: mineral oil/petrolatum ophthal oint EACHEYE SCH ×5 (02:00→19:57)
[2020-07-10 02:44] LABS: BASOPHILS # (AUTO) 0.2 X10'3 (0-0.2); BASOPHILS % (AUTO) 0.9 % (0-1); EOSINOPHILS # (AUTO) 0.6 X10'3 (0-0.9); EOSINOPHILS % (AUTO) 3.8 % (0-6); HEMATOCRIT 28.1 % (35.0-45.0); HEMOGLOBIN 9.2 g/dl (12.0-16.0); LYMPHOCYTES # (AUTO) 1.3 X10'3 (1.1-4.8); LYMPHOCYTES % (AUTO) 7.8 % (21-51); MEAN CORPUSCULAR HEMOGLOBIN 28.4 PG (27.0-31.0); MEAN CORPUSCULAR HGB CONC 32.8 g/dL (33.0-36.5); MEAN CORPUSCULAR VOLUME 86.5 FL (78-98); MEAN PLATELET VOLUME 8.3 FL (7.4-10.4); MONOCYTES # (AUTO) 0.8 X10'3 (0-0.9); MONOCYTES % (AUTO) 5.1 % (2-12); NEUTROPHILS # (AUTO) 13.3 X10'3 (1.8-7.7); NEUTROPHILS % (AUTO) 82.4 % (42-75); PLATELET COUNT 299 X10'3 (140-440); RED BLOOD COUNT 3.25 X10'6 (4.20-5.60); RED CELL DISTRIBUTION WIDTH 18.9 % (11.5-14.5); WHITE BLOOD COUNT 16.1 X10'3 (4.5-11.0)
[2020-07-10 02:55] LABS: ALANINE AMINOTRANSFERASE 9 U/L (12-78); ALBUMIN 1.6 G/DL (3.4-5.0); ALBUMIN/GLOBULIN RATIO 0.3 (1.1-1.5); ALKALINE PHOSPHATASE 65 IU/L (46-116); ANION GAP 7 (8-16); ASPARTATE AMINO TRANSFERASE 26 U/L (10-37); BILIRUBIN,TOTAL 0.6 MG/DL (0.1-1.0); BLOOD UREA NITROGEN 20 MG/DL (7-18); BUN/CREATININE RATIO 29.9 (6.6-38.0); CALCIUM 8.6 MG/DL (8.5-10.1); CHLORIDE 101 MMOL/L (99-107); CREATININE 0.67 MG/DL (0.40-0.90); GLUCOSE 192 MG/DL (70-104); MAGNESIUM 2.3 MG/DL (1.5-2.4); PHOSPHORUS 2.3 MG/DL (2.3-4.5); POTASSIUM 3.9 MMOL/L (3.5-5.1); SODIUM 138 MMOL/L (135-145); TOTAL CARBON DIOXIDE 29.9 MMOL/L (24-32); TOTAL PROTEIN 6.2 G/DL (6.4-8.2); eGFR 90 ML/MIN
[2020-07-10] MEDS: acetaminophen 325mg/10.15ml oral unit dose solution OGT PRN (03:01)
[2020-07-10] MEDS: furosemide 20 MG/2 ML vial IV SCH ×4 (03:06→19:54)
--- NOTE | 2020-07-10 03:11 | NUR ---
WBC 16.1 pt with temp 38.8 Tylenol given cooling measures taken, Elsi Brady NP updated.
[2020-07-10] MEDS: ipratropium/albuterol 3ml nebule NEB SCH ×6 (03:27→23:26)
--- NOTE | 2020-07-10 04:00 | NUR ---
Temp 37.8
[2020-07-10 04:21] LABS: ABG BASE EXCESS 2.6 mmol/L (-2.0-2.0); ABG HCO3 26.5 mmol/L (22.0-26.0); ABG PCO2 (T) 39.5 mmHg (32.0-45.0); ABG PO2 (T) 89.8 mmHg (75.0-100.0); ALLEN'S TEST POSITIVE; FCOHb 0.3 % (0.0-3.9); FMetHb 0.2 % (0.0-1.5); FO2Hb 94.5 % (94-97); PATIENT TEMPERATURE 37.8; PEEP 5 cm H2O; TOTAL HEMOGLOBIN 9.7 G/dl (12.0-16.0)
--- NOTE | 2020-07-10 06:15 | NUR ---
Problems reprioritized. Patient report given, questions answered & plan of care reviewed .
[2020-07-10] MEDS: lactobacillus rhamnosus 10,000 MMU CELLS/CAPSULE OGT SCH ×2 (07:27→19:56)
[2020-07-10] MEDS: docusate sodium 100mg/10ml UD cup OGT SCH ×2 (07:27→19:56)
[2020-07-10] MEDS: pantoprazole 40 MG vial IV SCH ×2 (07:27→19:54)
[2020-07-10] MEDS: nicotine 14mg patch - 24hr TD SCH (07:27)
[2020-07-10] MEDS: heparin, porcine 5000 units/ml vial SQ SCH ×2 (07:28→19:54)
[2020-07-10] MEDS: clopidogrel 75mg tablet OGT SCH (07:28)
[2020-07-10] MEDS: atorvastatin 20mg tablet OGT SCH (07:28)
[2020-07-10] MEDS: budesonide 0.5mg/2ml UD nebule IH SCH ×2 (07:33→19:19)
[2020-07-10] MEDS: methylnaltrexone br 12mg/0.6ml inj***SubQ only SQ SCH (07:48)
[2020-07-10] MEDS: ARGININE/GLUTAMINE/CALCIUM BMB (JUVEN 19.3GM PKT) 1 EACH POWD.PACK PO SCH ×2 (07:48→18:54)
[2020-07-10] MEDS: lisinopril 10 MG tablet OGT SCH (07:49)
[2020-07-10] MEDS: K and/or MAG REPLACEMENT MC SCH ×2 (08:00→19:56)
--- NOTE | 2020-07-10 08:00 | NUR ---
PER SUZANNE RN WAIT FOR PICC LINE PLACEMENT THEY WILL BE EXTUBATING HER TODAY AND MAY NOT NEED PICC. Vincenzo WATTS PICC RN
[2020-07-10] MEDS: VANCOmycin 1250MG/NS 250ml Bag 250 ML IV SCH ×2 (10:10→22:34)
[2020-07-10] MEDS ORDERED: racepinephrine 11.25mg/0.5ml nebule ONE ×2 (10:20→10:25)
[2020-07-10] MEDS ORDERED: dexamethasone sod phosphate 10mg/ml inj IV STA (10:23)
[2020-07-10] MEDS: NORepinephrine 8mg/ 250ml NS 250 ML IV SCH (11:10)
[2020-07-10] MEDS ORDERED: NORepinephrine 8mg/ 250ml NS 250 ML IV ONE (11:12)
[2020-07-10 11:20] LABS: ABG BASE EXCESS 14.6 mmol/L (-2.0-2.0); ABG HCO3 38.5 mmol/L (22.0-26.0); ABG OXYGEN SATURATION 99.1 % (94-97); ABG PCO2 (T) 44.9 mmHg (32.0-45.0); ABG PO2 (T) 272.4 mmHg (75.0-100.0); FCOHb 0.3 % (0.0-3.9); FLOW 15 L/min; FMetHb 0.1 % (0.0-1.5); FO2Hb 98.7 % (94-97); TOTAL HEMOGLOBIN 10.1 G/dl (12.0-16.0)
[2020-07-10] MEDS ORDERED: LIDOcaine 1% w/epiNEPHrine 1:200,000 30ml vial ONE (11:35)
[2020-07-10] MEDS ORDERED: sevoflurane 250ml liquid IH ONE (12:05)
--- NOTE | 2020-07-10 12:10 | NUR ---
Pt extubated at 1005 after obtained weaning parameters. per Dr Lucas, weaning parameters were acceptable for extubation with a positive cuff leak. Prior to extubation pt was responsive, following commands and cooperative. Post extubation, pt was immediately uncooperative, coughing uncontrollably as well as vomiting with active stridor. Dr dwyer at bedside to exam pt. Ambu bag blow by given while racemic epinephrine svn x2 was given via blow by as well. Reintubation was attempted by Dr dwyer with a 7.0 ETT unsuccessfully. Resumed bagging the pt while a smaller ETT was ready. Dr dwyer intubated the pt with a 6.0 ETT with direct visualization however when the ambu bag was connected, it was extremely hard to bag the pt without a positive color change. Almost instantly the pt had sub Q emphysema all around her face and neck. ETT was removed and manually bagging continued. ER MD, Anesthesia and a surgeon were immediately called. After arriving, Dr cuevas attempted intubation with a 6.0 ETT using the GlideScope. Airway was visualized and ETT was advanced without success. Pt oxygen saturations started to drop and the pt was starting to konstantin down. ETT was removed and manually bagging was resumed. Dr Gusman started to make an incision in the pts neck for an emergency cricoidotomy. The trach was placed in the airway and we attempted to bag the pt. The ptsd Addendum: 07/10/20 at 1224 by Uma Ebonie RT Amended: Links added. Addendum: 07/10/20 at 1234 by RT (continued).. The pts O2 sats started to drop again and the trach was removed from the airway. Naseem then placed a 6.5 ETT in the trachea through the tracheostomy hole. Once the placement was confirmed with positive color change with the End Tidal CO2 detector and bilateral breath sounds, the pts O2 sats started to increase. Per Dr Gusman and Dr Cuevas, "bag the pt with both hands and big volumes. She needs to get rid of that CO2, a vent will not do that right now." Per Dr dwyer "DO NOT LET GO OF THAT TUBE. YOU ARE HER AIRWAY". ETT was held at 17cm at the incision and manually bagging was continued until Dr Espinoza and the OR team came to take the pt to the OR. ETT was handed off at [address] Espinoza and the OR team escorted the pt to the OR.
[2020-07-10] MEDS ORDERED: fentaNYL /PF 50mcg/ml 5ml ampule ONE (12:16)
--- NOTE | 2020-07-10 12:16 | NUR ---
Per Dr. Lucas and weaning parameter (+cuff Leak, VC 515, RSBI 63, NIF -24) Extubated pt at 1005am, prior to extubation pt was following commands and was awake and cooperative. Right upon extubation pt started coughing, very hard time breathing, active heavy stridor noted. Uma (Respiratory therapist) with Ambu Bag at this time, Dr. Lucas arrived, Dexamethasone 10mg pushed, He tried to intubate x2 but was unsuccessful. Pt developed subcutaneous emphysema. Kavita Dodge was called. ER doctor and anesthesia were immediately called. Dr. Henry tried to intubate but was unsuccessful. Dr. Gusman at bedside and made an incision in pt's neck and the tube was placed. Ambu Bag was being used at all times to keep saturation up. Pt did have an episode of low sats up to 15% and bradycardia to lowest 30s but it was resolved in less than 1 minute. Drugs used during this time: Atomidate 20mg Rocuronium 50mg Post Tracheostomy 2Amps of Bicarb was given. pt was taken to OR at 1210. Dr. Espinoza at bedside before pt was taken to OR. Dr. Espinoza accompanied pt to OR along with OR nurses. Uma Gavin (RT) Uche (RN) and Felicia (Charge nurse) Kristin (Educator) were at bedside at all times until pt left to OR. Albina in case management updated the family. Dr Hand was au bedside too.
--- NOTE | 2020-07-10 12:55 | NUR ---
Pt's sister (Lynne) and nephew (Elmer) on the unit, Dr. Lucas spoke with them and explained what happened. I told them once the pt is back from OR will call her and update her with pt's condition.
[2020-07-10] MEDS ORDERED: mupirocin 2% ointment 22GM ONE (13:06)
[2020-07-10] MEDS ORDERED: rocuronium 10mg/ml inj IV ONE (13:13)
[2020-07-10 14:16] LABS: ABG BASE EXCESS 6.9 mmol/L (-2.0-2.0); ABG OXYGEN SATURATION 96.9 % (94-97); ABG PCO2 (T) 57.4 mmHg (32.0-45.0); ABG PO2 (T) 103.4 mmHg (75.0-100.0); FCOHb 0.3 % (0.0-3.9); FMetHb 0.1 % (0.0-1.5); FO2Hb 96.5 % (94-97); PATIENT TEMPERATURE 37.7; PEEP 5 cm H2O; RESPIRATORY RATE 20 b/min; TIDAL VOLUME 266 mL; TOTAL HEMOGLOBIN 9.8 G/dl (12.0-16.0)
[2020-07-10] MEDS: CISatracurium besylate inj. 100 MG in normal saline 100ml IV soln 90 ML IV PRN (14:20)
--- NOTE | 2020-07-10 14:22 | NUR ---
Pt having consistent leak around the trach d/t the large incision during the pts code. VT's are anywhere from 200-300. ABG obtained, pt ventilating well. MD aware of ABG results and leak issue.. No new orders or changes given. Stated that as long as the CO2 is still within range he will accept the leak until the wound heals. Addendum: 07/10/20 at 1425 by Uma Loomis RT Amended: Links added.
[2020-07-10] MEDS: dexamethasone 4mg/ml inj IM SCH (15:07)
--- NOTE | 2020-07-10 18:15 | NUR ---
Patient in room CICU 2007. I have received report from Parvin LAGOS and had the opportunity to ask questions and assume patient care.
--- NOTE | 2020-07-10 18:23 | NUR ---
Problems reprioritized. Patient report given, questions answered & plan of care reviewed with YOLIS Tello.
[2020-07-10] MEDS: dexmedetomidin/NS 400mcg/100ml 100 ML IV SCH (18:45)
[2020-07-10] MEDS: insulin glargine (Lantus) pen - multi-dose SQ SCH (18:55)
[2020-07-10 19:10] LABS: ABG BASE EXCESS 10.2 mmol/L (-2.0-2.0); ABG HCO3 36.9 mmol/L (22.0-26.0); ABG OXYGEN SATURATION 94.9 % (94-97); ABG PCO2 (T) 62.9 mmHg (32.0-45.0); ABG PO2 (T) 78.9 mmHg (75.0-100.0); FCOHb 0.3 % (0.0-3.9); FMetHb 0.2 % (0.0-1.5); FO2Hb 94.4 % (94-97); PATIENT TEMPERATURE 37.1; PEEP 5 cm H2O; RESPIRATORY RATE 22 b/min; TIDAL VOLUME 450 mL; TOTAL HEMOGLOBIN 9.9 G/dl (12.0-16.0)
[2020-07-10] MEDS: midazolam 100mg in NS 100ml 100 ML IV SCH (19:55)
[2020-07-10] MEDS: montelukast 10mg tablet OGT SCH (19:56)
[2020-07-11] VITALS (24 sets, daily range): BP systolic 102–163; BP diastolic 49–73
[2020-07-11] MEDS: piperacillin/tazo 3.375gm/50ml 50 ML IV SCH ×4 (00:21→23:47)
[2020-07-11] MEDS: dexamethasone 4mg/ml inj IM SCH (00:21)
[2020-07-11] MEDS: furosemide 20 MG/2 ML vial IV SCH ×4 (02:39→20:30)
[2020-07-11] MEDS: mineral oil/petrolatum ophthal oint EACHEYE SCH ×4 (02:39→20:30)
[2020-07-11 03:12] LABS: BASOPHILS # (AUTO) 0.1 X10'3 (0-0.2); BASOPHILS % (AUTO) 0.3 % (0-1); EOSINOPHILS % (AUTO) 0.1 % (0-6); HEMATOCRIT 27.2 % (35.0-45.0); HEMOGLOBIN 8.6 g/dl (12.0-16.0); LYMPHOCYTES # (AUTO) 0.4 X10'3 (1.1-4.8); MEAN CORPUSCULAR HEMOGLOBIN 27.2 PG (27.0-31.0); MEAN CORPUSCULAR HGB CONC 31.5 g/dL (33.0-36.5); MEAN CORPUSCULAR VOLUME 86.3 FL (78-98); MEAN PLATELET VOLUME 8.5 FL (7.4-10.4); MONOCYTES # (AUTO) 0.7 X10'3 (0-0.9); MONOCYTES % (AUTO) 3.4 % (2-12); NEUTROPHILS # (AUTO) 18.7 X10'3 (1.8-7.7); NEUTROPHILS % (AUTO) 94.2 % (42-75); PLATELET COUNT 349 X10'3 (140-440); RED BLOOD COUNT 3.15 X10'6 (4.20-5.60); RED CELL DISTRIBUTION WIDTH 19.4 % (11.5-14.5); WHITE BLOOD COUNT 19.9 X10'3 (4.5-11.0)
[2020-07-11] MEDS: ipratropium/albuterol 3ml nebule NEB SCH ×6 (03:15→23:15)
[2020-07-11 03:22] LABS: ALANINE AMINOTRANSFERASE 9 U/L (12-78); ALBUMIN 1.5 G/DL (3.4-5.0); ALBUMIN/GLOBULIN RATIO 0.3 (1.1-1.5); ALKALINE PHOSPHATASE 63 IU/L (46-116); ANION GAP 4 (8-16); ASPARTATE AMINO TRANSFERASE 21 U/L (10-37); BILIRUBIN,TOTAL 0.7 MG/DL (0.1-1.0); BLOOD UREA NITROGEN 20 MG/DL (7-18); BUN/CREATININE RATIO 24.1 (6.6-38.0); CALCIUM 8.3 MG/DL (8.5-10.1); CHLORIDE 103 MMOL/L (99-107); CREATININE 0.83 MG/DL (0.40-0.90); GLUCOSE 286 MG/DL (70-104); MAGNESIUM 2.1 MG/DL (1.5-2.4); PHOSPHORUS 2.6 MG/DL (2.3-4.5); POTASSIUM 3.2 MMOL/L (3.5-5.1); SODIUM 142 MMOL/L (135-145); TOTAL CARBON DIOXIDE 34.9 MMOL/L (24-32); TOTAL PROTEIN 6.4 G/DL (6.4-8.2); eGFR 70 ML/MIN
[2020-07-11] MEDS: FENTANYL-0.9 % NACL/PF 100 ML IV PRN ×5 (03:53→23:43)
[2020-07-11] MEDS: potassium Cl 20mEq/100mL bag 100 ML IV PRN ×4 (04:10→23:26)
[2020-07-11 04:55] LABS: ABG BASE EXCESS 11.6 mmol/L (-2.0-2.0); ABG HCO3 34.9 mmol/L (22.0-26.0); ABG OXYGEN SATURATION 96.4 % (94-97); ABG PCO2 (T) 41.5 mmHg (32.0-45.0); ABG PO2 (T) 86.3 mmHg (75.0-100.0); FCOHb 0.3 % (0.0-3.9); FMetHb 0.2 % (0.0-1.5); FO2Hb 95.9 % (94-97); PATIENT TEMPERATURE 37.5; PEEP 5 cm H2O; RESPIRATORY RATE 24 b/min; TIDAL VOLUME 450 mL; TOTAL HEMOGLOBIN 9.4 G/dl (12.0-16.0)
[2020-07-11] MEDS: dexmedetomidin/NS 400mcg/100ml 100 ML IV SCH ×2 (05:51→16:57)
[2020-07-11] MEDS: CISatracurium besylate inj. 100 MG in normal saline 100ml IV soln 90 ML IV PRN (05:57)
[2020-07-11] MEDS: budesonide 0.5mg/2ml UD nebule IH SCH ×2 (07:14→20:01)
[2020-07-11] MEDS: docusate sodium 100mg/10ml UD cup OGT SCH ×2 (07:18→20:29)
[2020-07-11] MEDS: pantoprazole 40 MG vial IV SCH ×2 (07:18→20:30)
[2020-07-11] MEDS: midazolam 100mg in NS 100ml 100 ML IV SCH ×3 (07:18→23:26)
[2020-07-11] MEDS: atorvastatin 20mg tablet OGT SCH (07:19)
[2020-07-11] MEDS: nicotine 14mg patch - 24hr TD SCH (07:19)
[2020-07-11] MEDS: lactobacillus rhamnosus 10,000 MMU CELLS/CAPSULE OGT SCH ×2 (07:19→20:30)
[2020-07-11] MEDS: lisinopril 10 MG tablet OGT SCH (07:51)
[2020-07-11] MEDS: K and/or MAG REPLACEMENT MC SCH ×2 (07:52→20:00)
[2020-07-11] MEDS: ARGININE/GLUTAMINE/CALCIUM BMB (JUVEN 19.3GM PKT) 1 EACH POWD.PACK PO SCH ×2 (08:00→20:00)
[2020-07-11] MEDS: heparin, porcine 5000 units/ml vial SQ SCH ×2 (08:00→20:00)
[2020-07-11] MEDS: clopidogrel 75mg tablet OGT SCH (08:00)
[2020-07-11] MEDS: dexamethasone 4mg/ml inj IV SCH ×5 (08:06→23:43)
[2020-07-11] MEDS: insulin regular, human U-100 3ml vial - multi-dose SQ SCH ×3 (08:08→20:38)
[2020-07-11] MEDS: VANCOmycin 1250MG/NS 250ml Bag 250 ML IV SCH ×2 (09:45→22:37)
[2020-07-11] MEDS ORDERED: iohexol 300mg/ml 100ml inj. ONE ×2 (11:50→11:53)
--- NOTE | 2020-07-11 12:24 | NUR ---
Reassessment: TF on hold for trach placement. Now placed, TF to be resumed starting at half of goal rate per RN at critical care rounds. Irving to resume with TF for wound healing needs. [facility] 07/10. Will continue to follow closely and monitor need for further nutrition intervention. Recommendations: 1) Continuous Vital High Protein with goal rate of 60 mL/hr. To provide: 1440 mL total volume/day, 1440 kcal, 126 g protein, and 1204 mL water 2) Additional 200 mL water flush Q4H 3) Irving with water flushes BID for wound healing. To administer, mix 1 packet of Irving with 140 mL water and flush tube with 30 mL of water before and after Irving administration. 4) Prealbumin q Wednesday/, daily weights 5) Routine bowel care Addendum: 07/11/20 at [address] Amended: Links added.
--- NOTE | 2020-07-11 16:30 | NUR ---
[facility] LINE INFORMATION: REF: [id number] LOT: [id number] EXP: 06/12/2021
--- NOTE | 2020-07-11 18:02 | NUR ---
I have reviewed and agree with all medications administered and interventions performed by BOTTOM WHEELER Student Epi Sy.
--- NOTE | 2020-07-11 18:11 | NUR ---
Problems reprioritized. Patient report given, questions answered & plan of care reviewed with YOLIS Tello.
[2020-07-11] MEDS: NORepinephrine 8mg/ 250ml NS 250 ML IV SCH (19:28)
[2020-07-11] MEDS: montelukast 10mg tablet OGT SCH (20:30)
[2020-07-11] MEDS: insulin glargine (Lantus) pen - multi-dose SQ SCH (21:13)
[2020-07-12] VITALS (24 sets, daily range): BP systolic 102–163; BP diastolic 49–69
[2020-07-12] MEDS: mineral oil/petrolatum ophthal oint EACHEYE SCH ×4 (01:34→22:00)
[2020-07-12] MEDS: furosemide 20 MG/2 ML vial IV SCH ×4 (01:36→19:53)
[2020-07-12] MEDS: insulin regular, human U-100 3ml vial - multi-dose SQ SCH ×4 (02:34→20:00)
[2020-07-12] MEDS: ipratropium/albuterol 3ml nebule NEB SCH ×6 (02:49→23:10)
[2020-07-12 02:58] LABS: BASOPHILS % (AUTO) 0.2 % (0-1); EOSINOPHILS % (AUTO) 0 % (0-6); HEMATOCRIT 26.4 % (35.0-45.0); HEMOGLOBIN 8.3 g/dl (12.0-16.0); LYMPHOCYTES # (AUTO) 0.4 X10'3 (1.1-4.8); LYMPHOCYTES % (AUTO) 2.5 % (21-51); MEAN CORPUSCULAR HEMOGLOBIN 27.1 PG (27.0-31.0); MEAN CORPUSCULAR HGB CONC 31.6 g/dL (33.0-36.5); MEAN CORPUSCULAR VOLUME 85.7 FL (78-98); MEAN PLATELET VOLUME 8.5 FL (7.4-10.4); MONOCYTES # (AUTO) 0.5 X10'3 (0-0.9); NEUTROPHILS % (AUTO) 94.3 % (42-75); PLATELET COUNT 403 X10'3 (140-440); RED BLOOD COUNT 3.08 X10'6 (4.20-5.60); RED CELL DISTRIBUTION WIDTH 19.2 % (11.5-14.5); WHITE BLOOD COUNT 15.9 X10'3 (4.5-11.0)
[2020-07-12 03:21] LABS: ALANINE AMINOTRANSFERASE 9 U/L (12-78); ALBUMIN 1.6 G/DL (3.4-5.0); ALBUMIN/GLOBULIN RATIO 0.3 (1.1-1.5); ALKALINE PHOSPHATASE 62 IU/L (46-116); ANION GAP 5 (8-16); ASPARTATE AMINO TRANSFERASE 15 U/L (10-37); BILIRUBIN,TOTAL 0.5 MG/DL (0.1-1.0); BLOOD UREA NITROGEN 27 MG/DL (7-18); BUN/CREATININE RATIO 28.7 (6.6-38.0); CALCIUM 9.2 MG/DL (8.5-10.1); CHLORIDE 102 MMOL/L (99-107); CREATININE 0.94 MG/DL (0.40-0.90); GLUCOSE 296 MG/DL (70-104); MAGNESIUM 2.4 MG/DL (1.5-2.4); PHOSPHORUS 2.9 MG/DL (2.3-4.5); POTASSIUM 3.4 MMOL/L (3.5-5.1); SODIUM 140 MMOL/L (135-145); TOTAL CARBON DIOXIDE 33.3 MMOL/L (24-32); TOTAL PROTEIN 6.6 G/DL (6.4-8.2); eGFR 61 ML/MIN
[2020-07-12] MEDS: FENTANYL-0.9 % NACL/PF 100 ML IV PRN ×4 (03:49→19:53)
[2020-07-12] MEDS: dexmedetomidin/NS 400mcg/100ml 100 ML IV SCH ×2 (04:03→15:07)
[2020-07-12 04:11] LABS: ABG BASE EXCESS 4.7 mmol/L (-2.0-2.0); ABG HCO3 28.7 mmol/L (22.0-26.0); ABG OXYGEN SATURATION 97.2 % (94-97); ABG PCO2 (T) 40.3 mmHg (32.0-45.0); FCOHb 0.3 % (0.0-3.9); FMetHb 0.3 % (0.0-1.5); FO2Hb 96.6 % (94-97); PATIENT TEMPERATURE 37.1; PEEP 5 cm H2O; RESPIRATORY RATE 22 b/min; TIDAL VOLUME 450 mL
[2020-07-12] MEDS: POTASSIUM BICARB 20meq eff tab 20 MEQ TABLET.EFF OGT PRN ×2 (05:08→16:59)
[2020-07-12] MEDS: midazolam 100mg in NS 100ml 100 ML IV SCH ×3 (06:54→22:53)
[2020-07-12] MEDS: budesonide 0.5mg/2ml UD nebule IH SCH ×2 (07:26→19:27)
[2020-07-12] MEDS: ARGININE/GLUTAMINE/CALCIUM BMB (JUVEN 19.3GM PKT) 1 EACH POWD.PACK PO SCH ×2 (08:00→20:04)
[2020-07-12] MEDS: K and/or MAG REPLACEMENT MC SCH ×2 (08:00→19:42)
[2020-07-12] MEDS: lisinopril 10 MG tablet OGT SCH (08:00)
[2020-07-12] MEDS: piperacillin/tazo 3.375gm/50ml 50 ML IV SCH ×2 (08:38→15:23)
[2020-07-12] MEDS: docusate sodium 100mg/10ml UD cup OGT SCH ×2 (08:38→19:53)
[2020-07-12] MEDS: pantoprazole 40 MG vial IV SCH ×2 (08:39→19:53)
[2020-07-12] MEDS: nicotine 14mg patch - 24hr TD SCH (08:39)
[2020-07-12] MEDS: methylnaltrexone br 12mg/0.6ml inj***SubQ only SQ SCH (08:39)
[2020-07-12] MEDS: atorvastatin 20mg tablet OGT SCH (08:39)
[2020-07-12] MEDS: lactobacillus rhamnosus 10,000 MMU CELLS/CAPSULE OGT SCH ×2 (08:39→19:53)
[2020-07-12] MEDS: dexamethasone 4mg/ml inj IV SCH ×2 (08:40→16:28)
[2020-07-12] MEDS: heparin, porcine 5000 units/ml vial SQ SCH ×2 (08:40→19:53)
[2020-07-12] MEDS: clopidogrel 75mg tablet OGT SCH (08:42)
[2020-07-12] MEDS: VANCOmycin 1250MG/NS 250ml Bag 250 ML IV SCH ×2 (09:40→22:00)
--- NOTE | 2020-07-12 17:44 | NUR ---
I have reviewed and agree with all medications administered and interventions performed by ORANGE PICKING SUPERVISOR Student Epi Sy.
[2020-07-12] MEDS: insulin glargine (Lantus) pen - multi-dose SQ SCH (21:59)
[2020-07-12] MEDS: montelukast 10mg tablet OGT SCH (22:00)
[2020-07-13] VITALS (22 sets, daily range): BP systolic 102–165; BP diastolic 52–82
[2020-07-13] MEDS: piperacillin/tazo 3.375gm/50ml 50 ML IV SCH ×3 (00:58→15:41)
[2020-07-13] MEDS: dexamethasone 4mg/ml inj IV SCH ×3 (00:59→15:55)
[2020-07-13] MEDS: FENTANYL-0.9 % NACL/PF 100 ML IV PRN ×6 (00:59→23:46)
[2020-07-13] MEDS: dexmedetomidin/NS 400mcg/100ml 100 ML IV SCH (02:15)
[2020-07-13] MEDS: insulin regular, human U-100 3ml vial - multi-dose SQ SCH ×4 (03:05→20:17)
[2020-07-13] MEDS: mineral oil/petrolatum ophthal oint EACHEYE SCH ×4 (03:06→20:14)
[2020-07-13] MEDS: furosemide 20 MG/2 ML vial IV SCH ×4 (03:09→20:13)
[2020-07-13] MEDS: ipratropium/albuterol 3ml nebule NEB SCH ×6 (03:15→23:20)
[2020-07-13 03:29] LABS: BASOPHILS % (AUTO) 0.2 % (0-1); EOSINOPHILS % (AUTO) 0 % (0-6); HEMATOCRIT 25.3 % (35.0-45.0); HEMOGLOBIN 8.1 g/dl (12.0-16.0); LYMPHOCYTES # (AUTO) 0.4 X10'3 (1.1-4.8); LYMPHOCYTES % (AUTO) 3.5 % (21-51); MEAN CORPUSCULAR HEMOGLOBIN 27.1 PG (27.0-31.0); MEAN CORPUSCULAR HGB CONC 32.1 g/dL (33.0-36.5); MEAN CORPUSCULAR VOLUME 84.6 FL (78-98); MEAN PLATELET VOLUME 8.4 FL (7.4-10.4); MONOCYTES # (AUTO) 0.5 X10'3 (0-0.9); MONOCYTES % (AUTO) 4.2 % (2-12); NEUTROPHILS # (AUTO) 10.2 X10'3 (1.8-7.7); NEUTROPHILS % (AUTO) 92.1 % (42-75); PLATELET COUNT 380 X10'3 (140-440); RED CELL DISTRIBUTION WIDTH 19.4 % (11.5-14.5); WHITE BLOOD COUNT 11.1 X10'3 (4.5-11.0)
[2020-07-13] MEDS: NORepinephrine 8mg/ 250ml NS 250 ML IV SCH (03:38)
[2020-07-13 03:49] LABS: ALANINE AMINOTRANSFERASE 8 U/L (12-78); ALBUMIN 1.7 G/DL (3.4-5.0); ALBUMIN/GLOBULIN RATIO 0.4 (1.1-1.5); ALKALINE PHOSPHATASE 53 IU/L (46-116); ANION GAP 8 (8-16); ASPARTATE AMINO TRANSFERASE 16 U/L (10-37); BILIRUBIN,TOTAL 0.4 MG/DL (0.1-1.0); BLOOD UREA NITROGEN 42 MG/DL (7-18); BUN/CREATININE RATIO 51.9 (6.6-38.0); CALCIUM 9.1 MG/DL (8.5-10.1); CHLORIDE 102 MMOL/L (99-107); CREATININE 0.81 MG/DL (0.40-0.90); GLUCOSE 222 MG/DL (70-104); MAGNESIUM 2.4 MG/DL (1.5-2.4); PHOSPHORUS 3.4 MG/DL (2.3-4.5); POTASSIUM 3.3 MMOL/L (3.5-5.1); SODIUM 143 MMOL/L (135-145); TOTAL CARBON DIOXIDE 33.5 MMOL/L (24-32); TOTAL PROTEIN 6.2 G/DL (6.4-8.2); eGFR 72 ML/MIN
[2020-07-13 03:56] LABS: ABG BASE EXCESS 8.4 mmol/L (-2.0-2.0); ABG OXYGEN SATURATION 95.7 % (94-97); ABG PCO2 (T) 46.1 mmHg (32.0-45.0); ABG PO2 (T) 85.8 mmHg (75.0-100.0); FCOHb 0.3 % (0.0-3.9); FMetHb 0.3 % (0.0-1.5); FO2Hb 95.1 % (94-97); PATIENT TEMPERATURE 37.1; PEEP 5 cm H2O; RESPIRATORY RATE 22 b/min; TIDAL VOLUME 450 mL; TOTAL HEMOGLOBIN 9.5 G/dl (12.0-16.0)
[2020-07-13] MEDS: POTASSIUM BICARB 20meq eff tab 20 MEQ TABLET.EFF OGT PRN ×2 (04:50→09:19)
[2020-07-13] MEDS: dexmedetomidine/D5W 100mL 100 ML IV SCH ×2 (06:20→17:08)
[2020-07-13] MEDS: midazolam 100mg in NS 100ml 100 ML IV SCH ×3 (07:02→20:29)
[2020-07-13 07:19] LABS: ANISOCYTOSIS 2+; MICROCYTOSIS 1+; PLATELET ESTIMATE NORMAL; POIKILOCYTOSIS FEW; POLYCHROMASIA FEW
[2020-07-13] MEDS: pantoprazole 40 MG vial IV SCH ×2 (07:53→20:13)
[2020-07-13] MEDS: atorvastatin 20mg tablet OGT SCH (07:54)
[2020-07-13] MEDS: clopidogrel 75mg tablet OGT SCH (07:54)
[2020-07-13] MEDS: lactobacillus rhamnosus 10,000 MMU CELLS/CAPSULE OGT SCH ×2 (07:54→20:13)
[2020-07-13] MEDS: K and/or MAG REPLACEMENT MC SCH ×2 (07:55→20:00)
[2020-07-13] MEDS: ARGININE/GLUTAMINE/CALCIUM BMB (JUVEN 19.3GM PKT) 1 EACH POWD.PACK PO SCH ×2 (07:56→20:26)
[2020-07-13] MEDS: docusate sodium 100mg/10ml UD cup OGT SCH ×2 (07:57→20:13)
[2020-07-13] MEDS: nicotine 14mg patch - 24hr TD SCH (07:57)
[2020-07-13] MEDS: heparin, porcine 5000 units/ml vial SQ SCH ×2 (08:00→20:13)
[2020-07-13] MEDS: lisinopril 10 MG tablet OGT SCH (08:00)
[2020-07-13] MEDS: budesonide 0.5mg/2ml UD nebule IH SCH ×2 (11:16→19:13)
[2020-07-13] MEDS: VANCOmycin 1250MG/NS 250ml Bag 250 ML IV SCH ×2 (11:21→22:47)
--- NOTE | 2020-07-13 18:07 | NUR ---
Problems reprioritized. Patient report given, questions answered & plan of care reviewed with FELICITAS LAGOS.
--- NOTE | 2020-07-13 18:15 | NUR ---
Patient in room CICU 2007. I have received report from YOLIS Cristobal and had the opportunity to ask questions and assume patient care.
[2020-07-13] MEDS: insulin glargine (Lantus) pen - multi-dose SQ SCH (20:18)
[2020-07-13] MEDS: montelukast 10mg tablet OGT SCH (21:00)
--- NOTE | 2020-07-13 23:23 | NUR ---
Breathing tx done inline rather than metaneb. Pt upset earlier and now sedated and resting. Asked not to wake patient
[2020-07-14] VITALS (25 sets, daily range): BP systolic 98–155; BP diastolic 48–72
[2020-07-14] MEDS: dexamethasone 4mg/ml inj IV SCH ×3 (00:39→19:23)
[2020-07-14] MEDS: piperacillin/tazo 3.375gm/50ml 50 ML IV SCH ×3 (00:39→16:23)
[2020-07-14] MEDS: midazolam 100mg in NS 100ml 100 ML IV SCH ×2 (01:35→12:08)
[2020-07-14] MEDS: furosemide 20 MG/2 ML vial IV SCH ×4 (02:50→19:21)
[2020-07-14] MEDS: mineral oil/petrolatum ophthal oint EACHEYE SCH ×4 (02:50→19:22)
[2020-07-14 03:05] LABS: BASOPHILS % (AUTO) 0.1 % (0-1); EOSINOPHILS % (AUTO) 0 % (0-6); HEMATOCRIT 27.2 % (35.0-45.0); HEMOGLOBIN 8.8 g/dl (12.0-16.0); LYMPHOCYTES # (AUTO) 0.5 X10'3 (1.1-4.8); LYMPHOCYTES % (AUTO) 4.3 % (21-51); MEAN CORPUSCULAR HEMOGLOBIN 27.5 PG (27.0-31.0); MEAN CORPUSCULAR HGB CONC 32.3 g/dL (33.0-36.5); MEAN CORPUSCULAR VOLUME 85.1 FL (78-98); MEAN PLATELET VOLUME 8.6 FL (7.4-10.4); MONOCYTES # (AUTO) 0.8 X10'3 (0-0.9); MONOCYTES % (AUTO) 6.6 % (2-12); PLATELET COUNT 404 X10'3 (140-440); RED BLOOD COUNT 3.19 X10'6 (4.20-5.60); RED CELL DISTRIBUTION WIDTH 19.1 % (11.5-14.5); WHITE BLOOD COUNT 12.3 X10'3 (4.5-11.0)
[2020-07-14] MEDS: ipratropium/albuterol 3ml nebule NEB SCH ×6 (03:27→23:15)
[2020-07-14 03:28] LABS: ALANINE AMINOTRANSFERASE 10 U/L (12-78); ALBUMIN 1.9 G/DL (3.4-5.0); ALBUMIN/GLOBULIN RATIO 0.4 (1.1-1.5); ALKALINE PHOSPHATASE 57 IU/L (46-116); ANION GAP 8 (8-16); ASPARTATE AMINO TRANSFERASE 23 U/L (10-37); BILIRUBIN,TOTAL 0.4 MG/DL (0.1-1.0); BLOOD UREA NITROGEN 49 MG/DL (7-18); BUN/CREATININE RATIO 54.4 (6.6-38.0); CALCIUM 8.9 MG/DL (8.5-10.1); CHLORIDE 102 MMOL/L (99-107); GLUCOSE 173 MG/DL (70-104); MAGNESIUM 2.5 MG/DL (1.5-2.4); PHOSPHORUS 4.2 MG/DL (2.3-4.5); POTASSIUM 3.2 MMOL/L (3.5-5.1); SODIUM 143 MMOL/L (135-145); TOTAL CARBON DIOXIDE 33.1 MMOL/L (24-32); TOTAL PROTEIN 6.4 G/DL (6.4-8.2); eGFR 64 ML/MIN
[2020-07-14 04:29] LABS: PLATELET ESTIMATE NORMAL
[2020-07-14 04:31] LABS: ANISOCYTOSIS 2+
[2020-07-14] MEDS: dexmedetomidine/D5W 100mL 100 ML IV SCH ×3 (04:32→19:22)
[2020-07-14] MEDS: POTASSIUM BICARB 20meq eff tab 20 MEQ TABLET.EFF OGT PRN ×3 (05:18→14:09)
[2020-07-14] MEDS: insulin regular, human U-100 3ml vial - multi-dose SQ SCH ×4 (05:26→20:26)
[2020-07-14] MEDS: heparin, porcine 5000 units/ml vial SQ SCH ×2 (07:43→19:24)
[2020-07-14] MEDS: pantoprazole 40 MG vial IV SCH ×2 (07:43→20:05)
[2020-07-14] MEDS: methylnaltrexone br 12mg/0.6ml inj***SubQ only SQ SCH (07:43)
[2020-07-14] MEDS: lisinopril 10 MG tablet OGT SCH (07:45)
[2020-07-14] MEDS: atorvastatin 20mg tablet OGT SCH (07:45)
[2020-07-14] MEDS: docusate sodium 100mg/10ml UD cup OGT SCH ×2 (07:45→20:05)
[2020-07-14] MEDS: lactobacillus rhamnosus 10,000 MMU CELLS/CAPSULE OGT SCH ×2 (07:45→20:05)
[2020-07-14] MEDS: clopidogrel 75mg tablet OGT SCH (07:45)
[2020-07-14] MEDS: nicotine 14mg patch - 24hr TD SCH (07:50)
[2020-07-14] MEDS: FENTANYL-0.9 % NACL/PF 100 ML IV PRN ×3 (07:52→20:09)
[2020-07-14] MEDS: K and/or MAG REPLACEMENT MC SCH ×2 (08:00→19:24)
[2020-07-14] MEDS ORDERED: VANCOMYCIN LEVEL IV ONE (09:30)
[2020-07-14] MEDS: ARGININE/GLUTAMINE/CALCIUM BMB (JUVEN 19.3GM PKT) 1 EACH POWD.PACK PO SCH ×2 (10:12→20:09)
[2020-07-14] MEDS: VANCOmycin 1250MG/NS 250ml Bag 250 ML IV SCH (10:12)
--- NOTE | 2020-07-14 10:35 | NUR ---
0630 Received report from Elisha, marion care of patient. 0900 Precedex started and decreasing fentanyl and versed. patient awake and able to follow commands, anxious and c/o pain in back. [address] Hand rounded. Per yuliya keep art line for another day. 1030- Vanco trough 27.3, alerted pharmacy, instructed to stop current administered dose. Dose stopped.
[2020-07-14] MEDS: budesonide 0.5mg/2ml UD nebule IH SCH ×2 (11:23→19:47)
--- NOTE | 2020-07-14 12:40 | NUR ---
F/u 07/14: Pt tolerating TF at goal GRV WNL. Receiving Irving for wound healing needs s/p L BKA. LBM 07/11 receiving routine colace and relistor. Receiving electrolyte replacements per protocol on lasix. Will continue to monitor. Recommendations: 1) Continuous Vital High Protein with goal rate of 60 mL/hr. To provide: 1440 mL total volume/day, 1440 kcal, 126 g protein, and 1204 mL water 2) Additional 200 mL water flush Q4H 3) Irving with water flushes BID for wound healing. To administer, mix 1 packet of Irving with 140 mL water and flush tube with 30 mL of water before and after Irving administration. 4) Prealbumin q Wednesday/, daily weights 5) Routine bowel care Addendum: 07/14/20 at [address] Amended: Links added.
[2020-07-14 13:20] LABS: ABG HCO3 32.5 mmol/L (22.0-26.0); ABG OXYGEN SATURATION 94.7 % (94-97); ABG PCO2 (T) 47.1 mmHg (32.0-45.0); ABG PO2 (T) 80.6 mmHg (75.0-100.0); ALLEN'S TEST POSITIVE; FCOHb 0.3 % (0.0-3.9); FMetHb 0.1 % (0.0-1.5); FO2Hb 94.3 % (94-97); PATIENT TEMPERATURE 37.8; PEEP 5 cm H2O; RESPIRATORY RATE 22 b/min; TIDAL VOLUME 450 mL; TOTAL HEMOGLOBIN 10.5 G/dl (12.0-16.0)
--- NOTE | 2020-07-14 17:40 | NUR ---
1700- Patient pain and anxiety controlled, currently on 0.4 of precedex, and fent is decreased down to 150 from 215, and versed at 5 from 13. Patient had a moment of tearfulness and was exhibiting frustration at the situation. Painful at neck with trach care but resolved once care was complete. Incision to neck area extends approximated 2 inches to the left of the trach, open and draining, covered with fenestrated optifoam under flange.
--- NOTE | 2020-07-14 18:26 | NUR ---
Problems reprioritized. Patient report given, questions answered & plan of care reviewed with
--- NOTE | 2020-07-14 18:30 | NUR ---
Patient in room CICU 2007. I have received report from YOLIS Brothers and had the opportunity to ask questions and assume patient care.
[2020-07-14] MEDS: montelukast 10mg tablet OGT SCH (20:05)
[2020-07-14] MEDS: insulin glargine (Lantus) pen - multi-dose SQ SCH (20:28)
[2020-07-14] MEDS: vancomycin/NS 1 GM ADD-VANTAGE 250 ML IV SCH (21:38)
[2020-07-15] VITALS (23 sets, daily range): BP systolic 100–158; BP diastolic 53–89
[2020-07-15] MEDS: piperacillin/tazo 3.375gm/50ml 50 ML IV SCH ×2 (01:57→07:59)
[2020-07-15] MEDS: mineral oil/petrolatum ophthal oint EACHEYE SCH ×3 (01:57→14:00)
[2020-07-15] MEDS: furosemide 20 MG/2 ML vial IV SCH ×2 (02:11→07:59)
[2020-07-15] MEDS: insulin regular, human U-100 3ml vial - multi-dose SQ SCH ×2 (02:50→08:16)
[2020-07-15] MEDS: FENTANYL-0.9 % NACL/PF 100 ML IV PRN ×3 (03:23→20:58)
[2020-07-15 03:26] LABS: ABG BASE EXCESS 8.2 mmol/L (-2.0-2.0); ABG HCO3 31.2 mmol/L (22.0-26.0); ABG OXYGEN SATURATION 97.8 % (94-97); ABG PCO2 (T) 36.3 mmHg (32.0-45.0); ABG PO2 (T) 98.6 mmHg (75.0-100.0); FCOHb 0.3 % (0.0-3.9); FO2Hb 97.5 % (94-97); PATIENT TEMPERATURE 36.5; PEEP 5 cm H2O; RESPIRATORY RATE 22 b/min; TIDAL VOLUME 450 mL; TOTAL HEMOGLOBIN 11.3 G/dl (12.0-16.0)
[2020-07-15] MEDS: ipratropium/albuterol 3ml nebule NEB SCH ×6 (03:28→23:03)
[2020-07-15 03:37] LABS: BASOPHILS % (AUTO) 0.2 % (0-1); EOSINOPHILS % (AUTO) 0.1 % (0-6); HEMATOCRIT 33.2 % (35.0-45.0); HEMOGLOBIN 10.6 g/dl (12.0-16.0); LYMPHOCYTES % (AUTO) 4.8 % (21-51); MEAN CORPUSCULAR HEMOGLOBIN 27.1 PG (27.0-31.0); MEAN CORPUSCULAR HGB CONC 31.9 g/dL (33.0-36.5); MEAN CORPUSCULAR VOLUME 84.9 FL (78-98); MEAN PLATELET VOLUME 8.5 FL (7.4-10.4); MONOCYTES # (AUTO) 1.2 X10'3 (0-0.9); MONOCYTES % (AUTO) 6.1 % (2-12); NEUTROPHILS # (AUTO) 18.1 X10'3 (1.8-7.7); NEUTROPHILS % (AUTO) 88.8 % (42-75); PLATELET COUNT 481 X10'3 (140-440); RED BLOOD COUNT 3.91 X10'6 (4.20-5.60); RED CELL DISTRIBUTION WIDTH 19.4 % (11.5-14.5); WHITE BLOOD COUNT 20.4 X10'3 (4.5-11.0)
[2020-07-15 03:52] LABS: ALANINE AMINOTRANSFERASE 19 U/L (12-78); ALBUMIN 2.3 G/DL (3.4-5.0); ALBUMIN/GLOBULIN RATIO 0.5 (1.1-1.5); ALKALINE PHOSPHATASE 65 IU/L (46-116); ANION GAP 8 (8-16); ASPARTATE AMINO TRANSFERASE 42 U/L (10-37); BILIRUBIN,TOTAL 0.5 MG/DL (0.1-1.0); BLOOD UREA NITROGEN 57 MG/DL (7-18); BUN/CREATININE RATIO 67.1 (6.6-38.0); CALCIUM 9.1 MG/DL (8.5-10.1); CHLORIDE 100 MMOL/L (99-107); CREATININE 0.85 MG/DL (0.40-0.90); GLUCOSE 172 MG/DL (70-104); MAGNESIUM 2.6 MG/DL (1.5-2.4); PHOSPHORUS 3.6 MG/DL (2.3-4.5); SODIUM 141 MMOL/L (135-145); TOTAL CARBON DIOXIDE 33.3 MMOL/L (24-32); TOTAL PROTEIN 7.4 G/DL (6.4-8.2); eGFR 68 ML/MIN
[2020-07-15] MEDS: dexmedetomidine/D5W 100mL 100 ML IV SCH (03:54)
[2020-07-15 03:56] LABS: POTASSIUM 2.9 MMOL/L (3.5-5.1)
[2020-07-15] MEDS: potassium Cl 20mEq/100mL bag 100 ML IV PRN ×4 (04:01→09:18)
[2020-07-15 05:54] LABS: ANISOCYTOSIS 2+; PLATELET ESTIMATE INCREASED
[2020-07-15 05:55] LABS: POLYCHROMASIA 1+
--- NOTE | 2020-07-15 06:28 | NUR ---
Patient in room CICU 2008. I have received report from Kalani and had the opportunity to ask questions and assume patient care.
[2020-07-15] MEDS: budesonide 0.5mg/2ml UD nebule IH SCH ×2 (07:37→19:47)
[2020-07-15] MEDS: midazolam 100mg in NS 100ml 100 ML IV SCH (07:59)
[2020-07-15] MEDS: dexamethasone 4mg/ml inj IV SCH ×2 (08:00→20:35)
[2020-07-15] MEDS: K and/or MAG REPLACEMENT MC SCH ×2 (08:00→20:00)
[2020-07-15] MEDS: nicotine 14mg patch - 24hr TD SCH (08:03)
[2020-07-15] MEDS: pantoprazole 40 MG vial IV SCH ×2 (08:03→20:33)
[2020-07-15] MEDS: docusate sodium 100mg/10ml UD cup OGT SCH ×2 (08:03→20:00)
[2020-07-15] MEDS: lactobacillus rhamnosus 10,000 MMU CELLS/CAPSULE OGT SCH ×2 (08:04→20:35)
[2020-07-15] MEDS: clopidogrel 75mg tablet OGT SCH (08:04)
[2020-07-15] MEDS: lisinopril 10 MG tablet OGT SCH (08:04)
[2020-07-15] MEDS: atorvastatin 20mg tablet OGT SCH (08:04)
[2020-07-15] MEDS: heparin, porcine 5000 units/ml vial SQ SCH ×2 (08:05→20:34)
[2020-07-15] MEDS: ARGININE/GLUTAMINE/CALCIUM BMB (JUVEN 19.3GM PKT) 1 EACH POWD.PACK PO SCH ×2 (08:05→20:00)
--- NOTE | 2020-07-15 09:25 | NUR ---
0915- Hygiene performed, patient immediately grabs for trach despite being instructed not too, very unsafe, alert, denies pain, trying to communicate by mouthing words, unable to write clearly. Bruising remains at pelvis, moving all extremities, Left stump tender to touch. 0976- Dr Hand here, would like chest tube to be discussed in rounds (clamp?) and lasix (decrease frequency?).
[2020-07-15] MEDS: vancomycin/NS 1 GM ADD-VANTAGE 250 ML IV SCH ×2 (10:35→21:19)
--- NOTE | 2020-07-15 12:44 | NUR ---
1140 Patient was able to pull OG out, wants to leave, insists she does not have a trach, mouths "she already pulled it out", keeps looking at VS and saying she is fine. I showed her a mirror to reinforce there is still a trach present. Added water wings to prevent patient from getting to trach. Patent states it is ok for her sister Gonzalo to have her purse, will place page to director of social services for them to make arrangements. 1200-Dr Frankie ball, dc zosyn, d/c lasix, d/c art line, d/c CVL, replace OG with NG, change lantus dose to add up regular insulin she receives in 24 hours period and give 1/4 of that dose in lantus BID, d/c lasix, clamp CT/ waterseal. add manual diff to daily labs, culture neck wound. explained window for stitches is with 6 hours of wound or 2 weeks after. For now wet to dry dressing TID using normal saline, transfer on hold til at least Wednesday. 1300- DC precedex, versed, start ativan 2mg q 2 hours PRN.
--- NOTE | 2020-07-15 14:47 | NUR ---
F/u 07/15: Pt pulled OG pending NG placement for nutrition per RN. Addendum: 07/15/20 at [address] Amended: Links added.
[2020-07-15] MEDS: LORazepam 2 mg/ml vial IV PRN ×2 (14:49→21:19)
--- NOTE | 2020-07-15 18:21 | NUR ---
1600- Dr David rounded again, keep NG out, BSS. 1800 Reported off to Kalani.
--- NOTE | 2020-07-15 18:30 | NUR ---
Patient in room CICU 2007. I have received report from YOLIS Brothers and had the opportunity to ask questions and assume patient care.
--- NOTE | 2020-07-15 20:00 | NUR ---
Problems reprioritized. Patient report given, questions answered & plan of care reviewed with YOLIS Little. Addendum: 07/15/20 at 2152 by Elisha Brothers RN Incorrect patient. Disregard note.
[2020-07-15] MEDS: montelukast 10mg tablet OGT SCH (20:35)
[2020-07-15] MEDS ORDERED: insulin glargine (Lantus) pen - multi-dose SQ SCH (22:00)
[2020-07-16] VITALS: BP 169/80
[2020-07-16 01:00] VITALS: BP 169/88
[2020-07-16 02:00] VITALS: BP 154/75
[2020-07-16 03:30] LABS: BASOPHILS # (AUTO) 0.1 X10'3 (0-0.2); BASOPHILS % (AUTO) 0.4 % (0-1); EOSINOPHILS % (AUTO) 0.1 % (0-6); HEMATOCRIT 33.5 % (35.0-45.0); HEMOGLOBIN 10.8 g/dl (12.0-16.0); LYMPHOCYTES % (AUTO) 3.6 % (21-51); MEAN CORPUSCULAR HEMOGLOBIN 27.5 PG (27.0-31.0); MEAN CORPUSCULAR HGB CONC 32.3 g/dL (33.0-36.5); MEAN CORPUSCULAR VOLUME 85.1 FL (78-98); MEAN PLATELET VOLUME 8.3 FL (7.4-10.4); MONOCYTES % (AUTO) 3.8 % (2-12); NEUTROPHILS # (AUTO) 25.3 X10'3 (1.8-7.7); NEUTROPHILS % (AUTO) 92.1 % (42-75); PLATELET COUNT 546 X10'3 (140-440); RED BLOOD COUNT 3.94 X10'6 (4.20-5.60); RED CELL DISTRIBUTION WIDTH 19.8 % (11.5-14.5)
--- NOTE | 2020-07-16 03:30 | NUR ---
RN IS TO DOCUMENT YES TO ALL APPLICABLE AREAS Pronouncement of : Cristian Caba MD 1. Time Physician Notified: 306 2. Date of :07/16/20 3. Time of : 329 4. DNR/Withdraw life support documented:N/A 5. Monitor strip has been placed on chart: Yes 6. Assessment process is of one-minute duration and includes following criteria: a) Patient is unresponsive to all stimuli: Yes b) Pupils fixed and non-reactive: Yes c) Auscultation of precordium reveals absence of heart tones: Yes d) Auscultation of lungs reveals absence of breath sounds: Yes e) Absence of blood pressure / all vital signs: Yes f) QRS complexes are not present on monitor / EKG strip: Yes g) Pacer spikes without capture: N/A 4. Comments: Family came to bedside and collected belongings.
[2020-07-16 03:33] LABS: WHITE BLOOD COUNT 27.5 X10'3 (4.5-11.0)
[2020-07-16 03:50] LABS: ALANINE AMINOTRANSFERASE 28 U/L (12-78); ALBUMIN 2.3 G/DL (3.4-5.0); ALBUMIN/GLOBULIN RATIO 0.5 (1.1-1.5); ALKALINE PHOSPHATASE 79 IU/L (46-116); ANION GAP 9 (8-16); ASPARTATE AMINO TRANSFERASE 62 U/L (10-37); BILIRUBIN,TOTAL 0.7 MG/DL (0.1-1.0); BLOOD UREA NITROGEN 41 MG/DL (7-18); BUN/CREATININE RATIO 46.6 (6.6-38.0); CALCIUM 9.7 MG/DL (8.5-10.1); CHLORIDE 103 MMOL/L (99-107); CREATININE 0.88 MG/DL (0.40-0.90); GLUCOSE 187 MG/DL (70-104); MAGNESIUM 2.5 MG/DL (1.5-2.4); PHOSPHORUS 5.2 MG/DL (2.3-4.5); POTASSIUM 3.7 MMOL/L (3.5-5.1); SODIUM 141 MMOL/L (135-145); TOTAL PROTEIN 7.3 G/DL (6.4-8.2); eGFR 66 ML/MIN
[2020-07-16 03:51] LABS: ANISOCYTOSIS 2+; PLATELET ESTIMATE INCREASED; POLYCHROMASIA 1+
[2020-07-16] MEDS ORDERED: VANCOMYCIN LEVEL IV ONE (09:30)
== END 2020-07-16 06:28 | disposition expired | DRG 3 ==
LOC: ER 10:07 → ED HOLD 10:55 → PCU 3S 16:56 → CICU 2S 07-01 10:35
PROVIDERS: ADMIT Internal Medicine; ATTEND Internal Medicine
PROC: 05HY33Z Insertion of Infusion Device into Upper Vein, Percutaneous Approach (ICD-10-PCS; 2020-07-01)
PROC: 3E03317 Introduction of Other Thrombolytic into Peripheral Vein, Percutaneous Approach (ICD-10-PCS; 2020-07-01)
PROC: 5A09357 Assistance with Respiratory Ventilation, Less than 24 Consecutive Hours, Continuous Positive Airway Pressure (ICD-10-PCS; principal; 2020-07-02)
PROC: 30233N1 Transfusion of Nonautologous Red Blood Cells into Peripheral Vein, Percutaneous Approach (ICD-10-PCS; 2020-07-02)
PROC: 5A1955Z Respiratory Ventilation, Greater than 96 Consecutive Hours (ICD-10-PCS; 2020-07-03)
PROC: 04PY0DZ Removal of Intraluminal Device from Lower Artery, Open Approach (ICD-10-PCS; 2020-07-03)
PROC: 0KNT0ZZ Release Left Lower Leg Muscle, Open Approach (ICD-10-PCS; 2020-07-03)
PROC: 0KNT0ZZ Release Left Lower Leg Muscle, Open Approach (ICD-10-PCS; 2020-07-03)
PROC: 0KNT0ZZ Release Left Lower Leg Muscle, Open Approach (ICD-10-PCS; 2020-07-03)
PROC: 0KNT0ZZ Release Left Lower Leg Muscle, Open Approach (ICD-10-PCS; 2020-07-03)
PROC: 0BH17EZ Insertion of Endotracheal Airway into Trachea, Via Natural or Artificial Opening (ICD-10-PCS; 2020-07-03)
PROC: 0Y6J0Z3 Detachment at Left Lower Leg, Low, Open Approach (ICD-10-PCS; 2020-07-06)
PROC: 3E0T3BZ Introduction of Anesthetic Agent into Peripheral Nerves and Plexi, Percutaneous Approach (ICD-10-PCS; 2020-07-06)
PROC: 0B110F4 Bypass Trachea to Cutaneous with Tracheostomy Device, Open Approach (ICD-10-PCS; 2020-07-10)
PROC: 0BB10ZZ Excision of Trachea, Open Approach (ICD-10-PCS; 2020-07-10)
PROC: 5A12012 Performance of Cardiac Output, Single, Manual (ICD-10-PCS; 2020-07-10)
PROC: 02HV33Z Insertion of Infusion Device into Superior Vena Cava, Percutaneous Approach (ICD-10-PCS; 2020-07-11)
PROC: B548ZZA Ultrasonography of Superior Vena Cava, Guidance (ICD-10-PCS; 2020-07-11)
PROC: BW2F1ZZ Computerized Tomography (CT Scan) of Neck using Low Osmolar Contrast (ICD-10-PCS; 2020-07-11)
PROC: BW241ZZ Computerized Tomography (CT Scan) of Chest and Abdomen using Low Osmolar Contrast (ICD-10-PCS; 2020-07-11)
PROC: 5A12012 Performance of Cardiac Output, Single, Manual (ICD-10-PCS; 2020-07-16)
DX: T82.898A Other specified complication of vascular prosthetic devices, implants and grafts, initial encounter (principal); J96.00 Acute respiratory failure, unspecified whether with hypoxia or hypercapnia; J93.9 Pneumothorax, unspecified; J98.11 Atelectasis; T79.7XXA Traumatic subcutaneous emphysema, initial encounter; I13.0 Hypertensive heart and chronic kidney disease with heart failure and stage 1 through stage 4 chronic kidney disease, or unspecified chronic kidney disease; E78.5 Hyperlipidemia, unspecified; F17.200 Nicotine dependence, unspecified, uncomplicated; I70.202 Unspecified atherosclerosis of native arteries of extremities, left leg; F41.0 Panic disorder [episodic paroxysmal anxiety]; N18.2 Chronic kidney disease, stage 2 (mild); I46.9 Cardiac arrest, cause unspecified; D64.9 Anemia, unspecified; E66.9 Obesity, unspecified; R00.0 Tachycardia, unspecified; I50.9 Heart failure, unspecified; Y83.8 Other surgical procedures as the cause of abnormal reaction of the patient, or of later complication, without mention of misadventure at the time of the procedure; I99.8 Other disorder of circulatory system; T88.4XXA Failed or difficult intubation, initial encounter; K21.9 Gastro-esophageal reflux disease without esophagitis; Z88.8 Allergy status to other drugs, medicaments and biological substances; Z90.49 Acquired absence of other specified parts of digestive tract; Z79.899 Other long term (current) drug therapy; Y92.89 Other specified places as the place of occurrence of the external cause; Z68.30 Body mass index [BMI] 30.0-30.9, adult
CPT/HCPCS: 36430; 36573; 37184; 37213; 92950; 96374; 96375; 99285; Z7506; Z7508; 36415; 36600; 70460; 70491; 71045; 71260; 73552; 76000; 76937; 80048; 80053; 80202; 81001; 82550; 82803; 82948; 83036; 83540; 83550; 83605; 83735; 84100; 84132; 84134; 84145; 84484; 85008; 85018; 85025; 85027; 85347; 85610; 85730; 86885; 86900; 86901; 86920; 87040; 87070; 87077; 87081; 87088; 87186; 93005; 94002; 94003; 94640; 94660; 94760; 94799; 99152; 99153; A4618; A4620; A6222; A6258; A6402; A6446; A6449; A7000; A7048; A7521; C1729; C1751; C1757; C1762; C1769; C1894; C9113; G0378; J0131; J0171; J0330; J0696; J0735; J0780; J1100; J1170; J1644; J1815; J1940; J2001; J2060; J2212; J2250; J2270; J2370; J2405; J2543; J2765; J2795; J2997; J3010; J3370; J3475; J3480; J3490; J7030; J7040; J7120; J7626; P9016; P9045; Q9967